=== PATIENT | male | born 1965 | race Caucasian/White ===

== ENCOUNTER 2023-08-19 21:33 | Outpatient (REF) | payer MEDICAID, SELFPAY ==
[2023-08-19 21:58] LABS: HCT 45.1 % (40.0-50.0); HGB 15.1 g/dL (13.5-17.5); MCH 27.7 pg (27.0-33.0); MCHC 33.5 % (32.0-36.0); MCV 83 fL (80-95); MPV 11.6 fL (8.0-11.0); Platelet Count 204 10^3/uL (130-400); RBC 5.45 10^6/uL (4.36-5.78); RDW 12.7 % (11.8-14.1); WBC 6.95 10^3/uL (4.4-10.8)
[2023-08-19 22:02] LABS: Prothrombin Time 9.9 sec (9.1-11.1)
[2023-08-19 22:21] LABS: ALT 20 U/L (16-63); AST 17 U/L (15-37); Albumin 4.3 g/dL (3.4-5.0); Alkaline Phosphatase 81 U/L (46-116); Bilirubin, Direct 0.2 mg/dL (0.0-0.2); Bilirubin, Total 1.1 mg/dL (0.2-1.0); TSH (W/Ref FT4) 3.13 uIU/mL (0.36-3.74); Total Protein 7.2 g/dL (6.4-8.2)
[2023-08-22 01:48] LABS: 25-Hydroxy D Total 39 ng/mL; 25-Hydroxy D2 <4.0 ng/mL; 25-Hydroxy D3 39 ng/mL
== END 2023-08-19 21:34 | disposition home or self-care (01) ==
LOC: NCHCN 21:33
PROVIDERS: Visit Provider Nurse Practitioner Family
DX: F33.3 Major depressive disorder, recurrent, severe with psychotic symptoms (principal)
CPT/HCPCS: 80076; 82306; 85027; 84443; 85610

== ENCOUNTER 2023-09-25 15:39 | Outpatient (REF) | payer MEDICAID, SELFPAY ==
[2023-09-25 16:54] LABS: Anion Gap 7.5 mmol/L (3-11); BUN 19 mg/dL (7-18); CO2 28.5 mmol/L (21.0-32.0); Calcium 8.8 mg/dL (8.5-10.1); Calculated LDL 124 mg/dL (<100); Chloride 107 mmol/L (98-107); Cholesterol 191 mg/dL (<200); Glucose 108 mg/dL (74-106); HDL Cholesterol 48 mg/dL (40-60); Potassium 4.1 mmol/L (3.5-5.1); Sodium 143 mmol/L (136-145); Triglyceride 96 mg/dL (<150)
== END 2023-09-25 15:40 | disposition home or self-care (01) ==
LOC: NCHCN 15:39
PROVIDERS: Visit Provider Nurse Practitioner Family
DX: I10 Essential (primary) hypertension (principal)
CPT/HCPCS: 80048; 80061

== ENCOUNTER 2024-02-29 05:53 | Outpatient (CLI) | payer MEDICAID, SELFPAY ==
[2024-02-29 11:15] LABS: HCT 41.6 % (40.0-50.0); HGB 14.2 g/dL (13.5-17.5); MCH 28.6 pg (27.0-33.0); MCHC 34.1 % (32.0-36.0); MCV 84 fL (80-95); Platelet Count 158 10^3/uL (130-400); RBC 4.96 10^6/uL (4.36-5.78); RDW 12.8 % (11.8-14.1); WBC 6.38 10^3/uL (4.4-10.8)
[2024-02-29 11:30] LABS: VALPROIC ACID 64.8 ug/mL
[2024-02-29 11:59] LABS: ALT 30 U/L (16-63); AST 21 U/L (15-37); Alkaline Phosphatase 69 U/L (46-116); Bilirubin, Direct 0.2 mg/dL (0.0-0.2); Total Protein 6.6 g/dL (6.4-8.2)
== END 2024-02-29 05:54 | disposition home or self-care (01) ==
LOC: LBO 05:53
PROVIDERS: PCP Nurse Practitioner Family; Referring Provider Nurse Practitioner Family; Visit Provider Nurse Practitioner Family
DX: F20.9 Schizophrenia, unspecified (principal); Z79.899 Other long term (current) drug therapy
CPT/HCPCS: 36415; 80076; 85027; 80164

== ENCOUNTER 2024-06-06 02:11 | Outpatient (CLI) | payer MEDICAID, SELFPAY ==
--- NOTE | 2024-06-06 08:29 | DI.RAD_ITS ---
Exam(s) XR SHOULDER LT COMPLETE 2+V EXAM: XR SHOULDER LT COMPLETE 2+V CLINICAL HISTORY: left shoulder pain, limited AROM, chronic, M25.512, G89.29. TECHNIQUE: 2D digital imaging was performed. COMPARISON: No exams were available for comparison FINDINGS: Five views No evidence of fracture or dislocation nor significant narrowing of the subacromial space. There are no abnormal soft tissue calcifications. No obvious degenerative changes in the glenohumeral and AC joints. Bone density normal. No osseous lesions. IMPRESSION: No significant osseous findings in the left shoulder. DATA REPOSITORY: RADIATION DOSE DELIVERED:
== END 2024-06-06 02:31 ==
PROVIDERS: PCP Nurse Practitioner Family; Visit Provider Nurse Practitioner Family
DX: M25.512 Pain in left shoulder (principal)
CPT/HCPCS: 73030

== ENCOUNTER 2024-09-12 01:39 | Outpatient (CLI) | payer MEDICAID, SELFPAY ==
--- NOTE | 2024-09-12 06:30 | DI.MRI_ITS ---
Exam(s) MR UPPER JOINT LT WO EXAM: MR UPPER JOINT LT WO CLINICAL HISTORY: L SHOULDER PAIN,lt rotator cuff tear,m75.102.m25.512, TECHNIQUE: Multiplanar multisequence MRI of the shoulder was performed. COMPARISON: CR XR SHOULDER LT COMPLETE 2+V from 06/06/2024 CR XR EYE FOREIGN BODY from 09/12/2024 FINDINGS: MARROW:There is no evidence of fracture, Hill-Sachs deformity, nor ominous osseous lesions. There is susceptibility artifact which is most probably related to prior surgery. GLENOHUMERAL JOINT: There are mild degenerative changes in the glenohumeral joint. There is a tiny o steophyte on the inferior articular surface of the humeral head. There is some mild articular cartil age loss. No degenerative subarticular cysts in the osseous glenoid.. ROTATOR CUFF MECHANISM: AC JOINT/ACROMIUM: There are minimal degenerative changes in the AC joint. No evidence of surgical w idening of this articulation.. There is no evidence of os acromiale. There is a 1.5 x 1.4 by 0.3 cm ridge on the undersurface of th e a chromium which is isointense to muscle and peripherally hypointense. There is some impingement a t this level. Supraspinatus: There is significant signal abnormality in the supraspinatus tendon consistent with t endinitis signal. There is also a tiny focus of fluid signal in the tendon which traverses the tendon . There is no fluid in the overlying subacromial bursa. This probably represents a small focal full-t hickness tear, located just above the greater tuberosity. There is no retraction of the musculotendin ous junction and no muscle atrophy in the supraspinatus. Infraspinatus: Intact. No evidence of tear nor muscle atrophy. Teres Minor: Intact. No evidence of tear nor muscle atrophy. Subscapularis/anterior cuff: There is some tendinitis signal evident in the anterior cuff/subscapular is but without obvious full-thickness tear, retraction, nor muscle atrophy. BICEPS TENDON: Exhibits normal position within the intertubercular groove. No evidence of tear. No significant tenosynovitis. LABRUM: There is no abnormal signal in the superior labrum posterior to the biceps tendon. The poste rior labrum appears intact. No obvious labral tears nor evidence of paralabral cyst. IMPRESSION: 1. There is susceptibility artifact indicating that there is most probably been prior surgery. 2. There is a small focus of signal abnormality traversing the supraspinatus tendon just above the gr eater tuberosity consistent with a small full-thickness tear. There is no fluid in the subacromial b ursa space. There is no tendon retraction. No muscle atrophy. There appears to be some impingement at the level of the acromium, as described above. 3. There is also tendinitis signal evident in the anterior cuff-subscapularis just anterior to the le sser tuberosity insertion site.. No full-thickness tear evident at this level.. 4. No evidence of obvious labral tears nor biceps tendon tear 5. Mild degenerative changes in the glenohumeral joint. No joint effusion evident. DATA REPOSITORY:
--- NOTE | 2024-09-12 08:55 | DI.RAD_ITS ---
Exam(s) XR EYE FOREIGN BODY EXAM: XR EYE FOREIGN BODY CLINICAL HISTORY: PRE MRI clearance, lt shoulder pain,h/o metal to eye. TECHNIQUE: 2D digital imaging was performed. COMPARISON: No exams were available for comparison FINDINGS: Two views no fractures. No fluid in the paranasal sinuses. No radiopaque foreign bodies evident in the region of the orbits. IMPRESSION: No radiopaque foreign bodies evident in the orbits-face region. DATA REPOSITORY: RADIATION DOSE DELIVERED:
== END 2024-09-12 01:59 ==
LOC: DI 01:40
PROVIDERS: PCP Nurse Practitioner Family; Visit Provider Student in an Organized Health Care Education/Training Program
DX: M75.122 Complete rotator cuff tear or rupture of left shoulder, not specified as traumatic (principal)
CPT/HCPCS: 70030; 73221

== ENCOUNTER 2024-12-29 09:16 | Day surgery (SDC) | payer MEDICAID, SELFPAY ==
[2024-12-29] VITALS (23 sets, daily range): BP systolic 129–164; BP diastolic 76–119; PULSE 53–78; RESP 13–23; TEMP 35.6–36.7; O2SAT 93–99; BMI 34.6
--- NOTE | 2024-12-29 07:21 | W.PM.DSUDISC ---
Date of service: 12/29/24 Discharge Plan Disposition Patient Disposition: Home Condition: Stable Discharge Details Attending Provider: Lucius Brito Primary Care Provider: Elisa Parikh Home Meds and New Rx's Prescriptions: New naproxen 250 mg tablet 250 - 500 mg PO BID PRN (Reason: Moderate pain) Qty: 40 0RF tramadol 50 mg tablet 50 mg PO TID PRNQty: 18 0RF Continued epinephrine [EpiPen 2-Tucker] 0.3 mg/0.3 mL auto-injector 0.3 mg IM ONCE PRN (Reason: anaphylaxis) Qty: 2 1RF Rx Instructions: as a single dose; may repeat once celecoxib [Celebrex] 100 mg capsule 100 mg PO BID PRN (Reason: pain) Qty: 60 1RF Rx Instructions: take with food (DME) ProChamber Spacer See Rx Instructions .Route Rx Instructions: As directed divalproex [Depakote ER] 250 mg tablet extended release 24 hr 1,500 mg PO QHS 30 Days Qty: 180 3RF budesonide-formoterol [Symbicort] 160-4.5 mcg/actuation HFA aerosol inhaler 1 puff inhalation BID Qty: 10.2 3RF albuterol sulfate 90 mcg/actuation HFA aerosol inhaler 2 puff inhalation Q6H PRN (Reason: shortness of breath or wheezing) Qty: 8.5 2RF Discharge Instructions Additional Instructions: Surgery: Left shoulder arthroscopy with biceps tenodesis, extensive debridement, distal clavicle excision, and subacromial decompression 12/29/24 Activity: You should gradually increase range of motion motion and use of your shoulder. You may use your shoulder for all regular activities while protecting biceps repair. Avoid any weighted elbow flexion or resisted supination for 6-8 weeks. No heavy lifting, reaching overhead, or lifting away from body for approximately 2-3 months. You may use the sling whenever you are out of the house for a few weeks. At home it is best to remove the sling and rest the arm on a pillow at your side or support the operative side with your other hand. A physical therapy prescription will be sent electronically to start in about 3 weeks. Prescriptions: Naproxen 250 mg take 1-2 every 12 hours with a meal as needed for moderate pain Oxycodone 5 mg take 1-2 every 4-6 hours as needed for severe pain You may use [id number] Tylenol (acetaminophen) as needed for mild pain. These pain medications may be taken all at once or in different combinations as needed. Also, recommend Colace (docusate) as a stool softener as surgery and pain medicine cause constipation. You may try [id number] diphenhydramine (Benadryl) 25-50 mg nightly as a sleep aid Dressings: Remove shoulder bandage after 3 days. Leave the sticky Steri-Strips in place until they fall off or remove them after you shower. Cover the incisions with Band-Aids or leave them open to air. You may shower after 5 days. Follow-up: 10-[address] Brito You may take off the leg compression stockings this evening at home. You may also leave them on a few days longer if you have a history of leg swelling or edema. Let us know right away if you develop any redness, drainage, fevers, chest pain, or trouble breathing. Do not drink alcohol or drive for at least 24 hours after anesthesia. Please call the office during business hours with any questions or concerns. Stand Alone Forms: Anesthesia Discharge Inst., Anes.Nerve Block Instructions, Elle Bojorquez (DSU) Referrals: Lucius Brito MD [ [facility] ST[facility]FF PHYSICIAN] - 01/10/25 9:00 am Discharge Orders Discharge Orders: Discharge Order (Routine); Ordered 12/29/24 Ordered By: Ethan Johnson DS: Diagnosis Discharge Diagnosis (1) Left rotator cuff tear: Status: Acute (2) Arthritis of left acromioclavicular joint: Status: Acute (3) SLAP lesion of left shoulder: Status: Acute (4) Bursitis of left shoulder: Status: Acute (5) Glenoid chondromalacia of left shoulder: Status: Acute
[2024-12-29] MEDS: Lactated Ringers 1,000 ML 30 ML IV (10:09)
--- NOTE | 2024-12-29 10:09 | W.ANESPRE ---
General Info Date of Service Date Performed: 12/29/24 Height: 6 ft Weight: 115.7 kg Body Mass Index (BMI): 34.6 Surgical Procedure: Operation Date: 12/29/24 10:40 Proposed Procedure Side Surgeon p Shoulder Rotator Cuff Arthroscopic w/Extensive Debridement, Biceps Tenodesis, Distal Clavicle Excision Left Lucius Brito MD Meds Allergies and Home Medications Allergies Allergy/AdvReac Type Severity Reaction Status Date / Time bee venom protein (honey bee) Allergy Severe Anaphylaxis Verified 12/29/24 09:33 Penicillins Allergy Severe Anaphylaxis Verified 12/29/24 09:33 quetiapine (From Seroquel) AdvReac Intermediate Other (See Verified 12/29/24 09:33 Comment) fluoxetine (From Prozac) AdvReac Becomes Verified 12/29/24 09:33 violent sertraline (From Zoloft) AdvReac Irritable Verified 12/29/24 09:33 Home Medication ?Medication ?Instructions ?Recorded inhalational spacing device 02/19/24 (ProChamber) epinephrine 0.3 mg/0.3 mL 0.3 mg (0.3 mL) IM ONCE PRN 05/26/24 injection, auto-injector (EpiPen anaphylaxis #2 ea 2-Tucker) Depakote ER 250 mg tablet,extended 1,500 mg (6 x 250 mg) PO QHS 30 07/13/24 release (divalproex) days #180 tabs albuterol sulfate 90 mcg/actuation 2 puff inhalation Q6H PRN 07/13/24 aerosol inhaler shortness of breath or wheezing #8.5 grams budesonide-formoterol HFA 160 1 puff inhalation BID #10.2 grams 07/13/24 mcg-4.5 mcg/actuation aerosol inhaler (Symbicort) celecoxib 100 mg capsule (Celebrex) 100 mg PO BID PRN pain #60 caps 09/23/24 naproxen 250 mg tablet 250 - 500 mg (1 - 2 x 250 mg) PO 12/29/24 BID PRN Moderate pain #40 tabs oxycodone 5 mg tablet 5 - 10 mg (1 - 2 x 5 mg) PO Q4H 12/29/24 PRN Moderate to severe pain #18 tabs Current Visit Medications: Current Medications Generic Name Dose Route Start Last Admin Trade Name Freq PRN Reason Stop Dose Admin Ringer's Solution 1,000 mls @ 30 mls/hr 12/29/24 06:00 12/29/24 10:09 IV 12/29/24 23:59 30 mls/hr INFUSION ELDA Administration Cefazolin Sodium/Dextrose 2 gm in 50 mls @ 100 mls/hr 12/29/24 06:00 Ancef Duplex IVPB 12/29/24 23:59 PREOP ELDA Tranexamic Acid/Sodium Chloride 1,000 mg in 100 mls @ 600 mls/hr 12/29/24 06:00 IVPB 12/29/24 23:59 PREOP ELDA IV Miscellaneous Supplies 1 each 12/29/24 06:00 Iv Access IV 12/29/24 23:59 DIRECTED ELDA Oxycodone HCl 0 mg 12/29/24 07:20 Oxycodone 5 Mg Tab PO 01/28/25 07:19 Q3H PRN PRN Pain Sodium Chloride 0 ml 12/29/24 06:00 Normal Saline Flush 10 Ml Syr IV 12/29/24 23:59 PRN PRN Sodium Chloride 0 ml 12/29/24 06:00 Normal Saline 10 Ml Vial IJ 12/29/24 23:59 DIRECTED PRN Sterile Water 0 ml 12/29/24 06:00 Water,Injection,Sterile 10 Ml Vial IJ 12/29/24 23:59 DIRECTED PRN PFSH Active Problems Active Problems: Problem Status Onset Code Left rotator cuff tear Acute M75.102 [facility] health care Acute Z00.00 Shoulder pain, left Acute M25.512 Moderate persistent asthma Acute J45.40 Essential hypertension Acute I10 Severe recurrent major depression with psychotic features Acute F33.3 Schizophrenia Chronic F20.9 Medical History Medical History Hypothyroidism Tobacco Smoking/Tobacco Use Status: Former Tobacco Use Passive smoking exposure: No Second hand exposure: Yes Alcohol Alcohol Intake: former Substance Use Substance use: Daily Substance use type: marijuana Vital Signs and Lab Results Vital Signs Most Recent Vital Signs in EMR: Most Recent Vital Signs Temp Pulse Resp BP Pulse Ox 36.3 C L 74 18 151/93 H 99 12/29/24 09:22 12/29/24 09:22 12/29/24 09:22 12/29/24 09:45 12/29/24 09:22 Lab Results Blood Type / Crossmatch: No Data to Display Complete Blood Count: No Data to Display Complete Metabolic Panel: No Data to Display Liver Function Panel: No Data to Display Coagulation Panel: No Data to Display Cardiac Panel: No Data to Display Arterial Blood Gas: No Data to Display Venous Blood Gas: No Data to Display Pancreas Panel: No Data to Display Thyroid Panel: No Data to Display Infectious Disease: No Data to Display Blood Cultures: No Data to Display Toxicology Panel: No Data to Display Anesthesia Assessment and Plan Anesthesia History Personal History: No History of Anesthesia Complications Family History: Family History Unknown Exercise Tolerance Exercise Tolerance: Metabolic Equivalents>4 Pertinent Negatives Pertinent Negatives: No Symptoms of GERD Cardiac & Pulmonary Exam Cardiac Exam: Normal S1/S2 Heart Sounds Pulmonary Exam: Clear Bilateral Breath Sounds Implantable Cardiac Device Does patient have a Pacemaker or an ICD?: No Airway Exam Known Difficult Airway: No Mallampati Class: 2 Mouth Opening: Normal (> 3cm) Thyromental Distance: Greater than 3 cm Neck Range of Motion: Full ROM Neck Circumference: Normal Teeth Condition: Normal Dentition ASA Classification ASA Score: ASA 2 Emergency Case?: No NPO Status NPO Status: NPO Clears >2 hours, Solids >8 hours Anesthesia Plan Resuscitation Status: Full Code Anesthesia Technique: General Anesthesia Airway Planned: Endotracheal Tube Pain Management: Surgeon and patient request nerve block Monitors Used: Standard Monitors
--- NOTE | 2024-12-29 11:17 | ROE_ITS ---
Operative Note Operative Note PRE-OP DIAGNOSIS: Left: 1. Rotator cuff tear 2. SLAP tear 3. Bursitis 4. AC joint arthritis POST-OP DIAGNOSIS: same PROCEDURE: Left: 1. Arthroscopic biceps tenodesis, CPT# 92876. This involved arthroscopically suturing and reattaching the long head of the biceps tendon to the proximal humerus at the superior margin of the bicipital groove with a screw at the correct tension. 2. Extensive debridement, CPT# 69432. This involved using arthroscopic hand instruments, power instruments, and radiofrequency instruments to release the long head of the biceps tendon and debride areas of labral tearing, synovitis, SLAP tearing, and MGHL partially working within the glenohumeral joint anteriorly, superiorly and posteriorly and debride mild bursal rotator cuff fraying in the subacromial space. 3. Subacromial decompression with partial acromioplasty, CPT# 97832. This involved using arthroscopic power instruments and a radiofrequency wand to complete a bursectomy and smooth the undersurface of the acromion. 4. Arthroscopic distal clavicle excision, CPT# 66305. This involved arthroscopically exposing the underside of the acromioclavicular joint, smoothing out bone spurs, and removing approximately 5 mm of the distal clavicle and acromion so there was no bone left engaging. The tiler's assistant was medically required in order to help assist in techniques above, which require positioning the arm, holding the arthroscope, and arvind pulating multiple instruments and sutures at the same time. This cannot be done without the help of an experienced tiler's assistant. SURGEON: Lucius Brito RETAIL MARKETING COORDINATOR: Ethan Johnson ANESTHESIA TYPE: General LMA/ETT and Primary Nerve Block Refer to Anesthesia Record ESTIMATED BLOOD LOSS: 5 PATHOLOGY: none sent COMPLICATIONS: None Patient was transported to: PACU Patient's condition: stable Implants: Arthrex: 4.75mm SwiveLocks x 1 Indications: The patient was diagnosed with the above conditions and appropriately indicated for surgical intervention. Please see complete medical record for details. Findings: Exam under anesthesia: Full range of motion, no instability Glenohumeral joint: Moderate anterior rotator synovitis. Largely intact articular rotator cuff. Intact subscapularis. Large obvious redundant superior labrum tear SLAP tear otherwise intact biceps with hemorrhagic biceps injection to grasper the groove. Mild anterior posterior labral fraying. Thickened M GH L. Subacromial space: Moderate bursitis. Impinging acromion especially anteriorly and impinging distal clavicle at acromion joint. Mild central to lateral supraspinatus fraying with some hemorrhagic injection but no structural rotator cuff tearing thinning or notable softening. Procedure Description: In the operating room, general anesthesia was induced. Bilateral shoulders were examined. The patient was positioned in the beachchair position. All bony prominences were well-padded. Preoperative antibiotics were administered. The shoulder was prepped and draped in the usual sterile fashion. The correct patient, procedure, and side of the procedure were all verified prior to incision. Starting through the posterior portal a standard complete diagnostic arthroscopy was performed of the glenohumeral joint including inspection of the long head of the biceps, anterior and superior labrum, subscapularis tendon, supraspinatus and infraspinatus tendons, and axillary recess. The glenoid and humeral head cartilage as well as the posterior labrum were inspected from an anterior viewing portal. Significant findings and interventions noted above. An all-arthroscopic suprapectoral biceps tenodesis was performed through an anterior portal using a Loop N Tack method with a SutureTape FiberLink cinched around and through the tendon. The biceps was tenotomized from the labrum and fixated with a suture anchor at the superior margin of the bicipital groove. Starting through the posterior portal, the arthroscope was directed into the subacromial space. A lateral 50 yard line lateral portal was created. A combination of power instruments and a radiofrequency ablator were used to debride bursitis anteriorly, posteriorly, and laterally as well as expose and smooth bone spurring on the undersurface of the acromion. The coracoacromial ligament was partially released. The bursectomy was completed viewing laterally and working from posteriorly and the rotator cuff was thoroughly inspected with findings noted above. The anterior portal was redirected towards the undersurface of the AC joint. A shaver and electrocautery device were used to clear soft tissue from the unders urface of the AC joint. The distalmost 5 mm of the distal clavicle and medial acromion were then removed and smoothed. Care was taken to ensure that proper amount of bone was removed and there was no engaging bone left behind especially superiorly. The rotator cuff was thoroughly probed and inspected through range of motion but the focal tear on MRI did not reveal itself to require any repair. The shoulder was drained of arthroscopic fluid. All portal sites were copiously irrigated. These incisions were closed using 3-0 Monocryl in a buried fashion and then covered with Mastisol, Steri-Strips, Xeroform, dry gauze, and ABDs. The dressings were covered and secured with Medipore tape. The operative extremity was placed into a sling for immobilization. The patient awoke from anesthesia without complication and was transferred to the recovery room in a stable condition. Date of Procedure: 12/29/24
[2024-12-29] MEDS: ceFAZolin 2 GM/50 ML BAG IVPB (11:30)
[2024-12-29] MEDS: TRANEXAMIC ACID/SOD. CHL. 1,000 MG/100 ML BAG 600 MG IVPB (11:35)
[2024-12-29] MEDS: EPINEPHrine 10 MG/10 ML ML (12:00)
[2024-12-29] MEDS: Bupivacaine 0.25% Pres-Free W/EPI 30 ML VIAL (12:00)
--- NOTE | 2024-12-29 12:41 | W.ANESNERVE ---
Nerve Block Single Injection Procedure Date and Time Date Performed: 12/29/24 Procedure Start: 11:05 Location Where Procedure Performed Procedure Location: Day Surgery Unit Reason Performed: Postoperative Analgesia Requesting Provider: Lucius Brito Timeout Performed Timeout Performed: Yes Monitoring Used ECG, Blood Pressure, SpO2 and See EMR for corresponding vital signs Sterility Sterility: Hand Hygiene, Surgical Cap, Surgical Mask, Sterile Gloves and Chlorhexidine Sedation Given During Procedure Sedation Given (Indicate Dose Given): Versed IV Dose:: 2mg Patient Mental Status Patient Mental Status: Sedate with meaningful communication Nerve Block 1st Nerve Block: Laterality: Left Block Type: Interscalene Ultrasound Image Saved?: Yes Needle / Catheter Used: 100mm SonoPlex II Local Anesthetic Bolus (Indicate Dose Given): Lidocaine used for local infiltration of skin, Injected in 3-5ml increments after negative blood aspiration, Bupivacaine 0.5% Dose:: 10ml and Exparel Dose:: 10ml Additives (Indicate Dose Given): None Ultrasound: Sterile probe cover and gel used Nerve Stimulator: Supplement to Ultrasound use and No twitch or parasthesia noted < 0.5 mA Paresthesia: None Procedure Tolerated: No Complications and Patient tolerated well Procedure Outcome: Successful Procedure Comment: Interscalene view mildly obscured, went slightly caudal for this view. Performed By: Loki Estrada
--- NOTE | 2024-12-29 13:49 | W.ANESPOSTOP ---
Postoperative Evaluation Date, Time and Location Date Performed: 12/29/24 Time Performed: 13:49 Patient Location: PACU Vital Signs Most Recent Imported Vital Signs: Most Recent Vital Signs Temp Pulse Resp BP Pulse Ox 36.7 C 63 13 142/83 H 96 12/29/24 13:45 12/29/24 13:46 12/29/24 13:46 12/29/24 13:45 12/29/24 13:46 Pain Score Most Recent Pain Score: Most Recent Pain Score Pain Level 0 12/29/24 13:46 Assessment Mental Status: Awake (Alert & Oriented to Patient Baseline) Airway and Respiratory Function: Patent airway with normal (patient baseline) respiratory exam Cardiovascular Function: Hemodynamically Stable Hydration Status: Adequately Hydrated Nausea & Vomiting: No Nausea or Vomiting Pain: Pt. Denies Any Pain Peripheral Nerve Block: Regional nerve block not resolved at time of post operative discharge
== END 2024-12-29 16:44 | disposition home or self-care (01) ==
LOC: SUR 09:17
PROVIDERS: PCP Nurse Practitioner Family; Visit Provider Student in an Organized Health Care Education/Training Program
PROC: (CPT 29827; principal; 2024-12-29 10:30)
DX: M75.102 Unspecified rotator cuff tear or rupture of left shoulder, not specified as traumatic (principal); M75.22 Bicipital tendinitis, left shoulder; M75.52 Bursitis of left shoulder; M75.42 Impingement syndrome of left shoulder; M19.012 Primary osteoarthritis, left shoulder; S43.432A Superior glenoid labrum lesion of left shoulder, initial encounter; M94.212 Chondromalacia, left shoulder; G89.18 Other acute postprocedural pain
CPT/HCPCS: 29827; 29828; 29823; 29824; 64415; J0131; J0665; J0666; J0690; J1100; J2250; J2405; J2704

== ENCOUNTER 2025-02-07 08:46 | Day surgery (SDC) | payer MEDICAID, SELFPAY ==
[2025-02-07] VITALS (56 sets, daily range): BP systolic 148–197; BP diastolic 79–111; PULSE 59–86; RESP 7–22; TEMP 36.2–36.7; O2SAT 93–99; BMI 33.6
--- NOTE | 2025-02-07 09:00 | DI.CT_ITS ---
Exam(s) CT THORAX ABD/PEL CTA EXAM: CT THORAX ABD/PEL CTA CLINICAL HISTORY: epigasttric pain with radiation, dark vomitus. TECHNIQUE: Imaging Protocol: Axial computed tomography images with coronal and sagittal reformatted images were created and reviewed CONTRAST MATERIAL: Intravenous: Omnipaque 350 Contrast volume:125 now Oral: None COMPARISON: No exams were available for comparison FINDINGS: CHEST: AORTA: The diameter of the ascending thoracic aorta aortic arch are normal. No significant atheroscl erotic disease and there is no evidence of aortic dissection. The abdominal aorta also appears unrem arkable with no aneurysm nor dissection. The aortoiliac segments are also unremarkable as are the co mmon femoral arteries. Incidentally noted is independent origin of the splenic artery and common hep atic artery off the anterior aspect of the upper abdominal aorta instead of a common celiac trunk. T he superior mesenteric artery is unremarkable and the inferior mesenteric artery is also patent. Lul al arteries unremarkable. LUNGS: No infiltrates nor pleural effusions. No significant pulmonary nodules evident. No findings in trachea and mainstem bronchi.. MEDIASTINUM: There is no hilar nor mediastinal adenopathy. CARDIAC: Heart size is normal. There is no pericardial effusion. ABDOMEN: AORTA: Unremarkable GI: There is no ascites. There is no intraluminal contrast extravasation demonstrating an acute GI b leed, as per request. There is an abnormal retrocecal appendix which is abnormally dilated to 1.6 cm , this starting 3 cm distal from its junction with the cecum. The distal 3 cm of the appendix is enl arged and exhibits internal fluid density. Also surrounding fat streaking. Consistent with acute ap pendicitis. There are no calcified intraluminal appendicoliths. LIVER: There multiple well-defined hypodensities in the liver which have the appearance of benign cys ts, the largest of these measuring 3 by 2.5 cm. No solid lesions. No dilated intrahepatic ducts. GALLBLADDER/BILIARY: No obvious gallbladder pathology. CBD is not dilated. PANCREAS: No evidence of pancreatic mass nor dilatation of the pancreatic duct. SPLEEN: Spleen is not enlarged. There are no intrasplenic lesions. Splenic and portal veins are castillo nt. ADRENALS: There are no significant adrenal masses. KIDNEYS: There few small benign sub cm cortical cysts in the kidneys. These do not require follow-up . No calculi nor hydronephrosis. No solid renal masses. ABDOMINAL AORTA: Unremarkable. See above LYMPH NODES: There is no retroperitoneal nor para-aortic adenopathy. No obvious mesenteric masses. ABDOMINAL WALL: There is a fat only containing umbilical hernia. PELVIS: LYMPH NODES: There is no intrapelvic nor inguinal adenopathy. GI: Appendicitis as described above.No evidence of sigmoid diverticulitis. URINARY BLADDER: No calculi nor masses evident REPRODUCTIVE: Prostate size upper normal. OSSEOUS: No significant osseous lesions. No fractures. IMPRESSION: 1. Acute retrocecal appendicitis. Surgical consultation recommended 2. No evidence of intraluminal gut extravasation of contrast to suggest acute GI bleed. 3. No evidence of aortic dissection nor other intrathoracic findings. 4. Hepatic cysts. Report called by myself to ER provider 02/07/2025 at 11:12 a.m. RADIATION DOSE DELIVERED: 1,082.03mGy.cm Total DLP DATA REPOSITORY: All CT scans at this facility are submitted to the National Radiology Data Registry (NRDR) Dose Index Registry (DIR) with the [employer] (ACR). RADIATION OPTIMIZATION: All CT scans at this facility use at least one of these dose optimization te chniques: automated exposure control; mA and/or kV adjustment per patient size (includes targeted exa ms where dose is matched to clinical indication); or iterative reconstruction.
--- NOTE | 2025-02-07 09:00 | RT.EKG_ITS ---
APPROVED REPORT Exam: Resting ECG Reason for Exam: epigastric pain Patient Location: E HR:61 bpm ECG Measurements Heart Rate 61 AXIS ID 154 P 30 QRSd 112 QRS 31 QT 419 T 17 QTc 422 Conclusion Sinus rhythm...normal P axis, V-rate 60- 99 No Occlusion NV
[2025-02-07 09:48] LABS: Abs Immature Grans 0.07 10^3/uL (0.0-0.06); Absolute Basophil Count 0.03 10^3/uL (0.0-0.2); Absolute Eosinophil Count 0.02 10^3/uL (0.0-0.7); Absolute Lymphocyte Count 1.62 10^3/uL (1.2-3.4); Absolute Neutrophil Count 11.53 10^3/uL (1.2-6.7); Basophils % 0.2 %; Eosinophils % 0.1 %; HCT 48.5 % (40.0-50.0); HGB 16.4 g/dL (13.5-17.5); Immature Grans % 0.5 %; Lymphocytes % 10.7 %; MCH 27.6 pg (27.0-33.0); MCHC 33.8 % (32.0-36.0); MCV 82 fL (80-95); Monocytes % 12.5 %; Platelet Count 207 10^3/uL (130-400); RBC 5.94 10^6/uL (4.36-5.78); RDW 12.7 % (11.8-14.1); RDW-SD 37.3 fL; WBC 15.17 10^3/uL (4.4-10.8)
[2025-02-07] MEDS: Normal Saline 1,000 ML 1000 ML IV (09:51)
[2025-02-07] MEDS: Pantoprazole 40 MG VIAL IVP (09:52)
[2025-02-07] MEDS: MORPHine 10 MG/ML VIAL 6 MG IVP (09:52)
[2025-02-07] MEDS: Ondansetron 4 MG/2 ML VIAL IVP (09:52)
[2025-02-07 10:06] LABS: ALT 20 U/L (16-63); AST 19 U/L (15-37); Albumin 4.5 g/dL (3.4-5.0); Alkaline Phosphatase 100 U/L (46-116); Anion Gap 7.6 mmol/L (3-11); BUN 13 mg/dL (7-18); Bilirubin, Total 1.9 mg/dL (0.2-1.0); CO2 30.4 mmol/L (21.0-32.0); CREATININE 1.1 mg/dL (0.70-1.30); Calcium 9.9 mg/dL (8.5-10.1); Chloride 102 mmol/L (98-107); Estimated GFR 76.37 (mL/min/1.73m2); Glucose 109 mg/dL (74-106); Lipase 42 U/L (<78); Potassium 4.1 mmol/L (3.5-5.1); Sodium 140 mmol/L (136-145); Troponin I 11 ng/L (<or=76)
[2025-02-07] MEDS: Omnipaque 350 MG/ML 50 ML BTL IJ (10:35)
[2025-02-07] MEDS: Omnipaque 350 MG/ML 100 ML BTL IJ (10:35)
[2025-02-07] MEDS: Normal Saline - Diluent 50 ML VIAL IJ ×2 (10:36→10:37)
[2025-02-07 10:54] LABS: Diff Comment Agrees w/ Instrument; RBC Morphology Normal
--- NOTE | 2025-02-07 11:25 | W.PM.HP.N ---
Date of service: 02/07/25 Time of Service: 11:25 Assessment and Plan Assessment and plan (1) Acute appendicitis: Status: Acute Assessment and plan: History and exam certainly seem consistent with acute appendicitis. The CAT scan has clear radiographic evidence of that. I explained the role of appendectomy in the treatment of this, what to expect in terms of the procedure itself and the recovery. I explained the risks and the benefits. I think given his a very good understanding of all of this. He is able to provide informed consent today, and we can proceed with appendectomy as soon as the OR can accommodate us. History of Present Illness History of Present Illness Chief Complaint: abdominal pain Narrative: Zane is 59 years old. Sometime yesterday afternoon, after doing some yard work he noticed the onset of abdominal pain. Seems like it was mostly in the mid abdomen, but eventually radiated to the right side and settled there. He did develop some nausea associated with this, and vomited not long after eating dinner. He was able to get some sleep through the night, but continued to have worsening pain through this morning, so he came to the emergency department for evaluation. In the ER, he had a white blood cell count around 15,000. He underwent a CT scan that demonstrated acute appendicitis. He has never had any abdominal surgery before. He is allergic to penicillin, Seroquel, Prozac and sertraline. Review of Systems Constitutional Constitutional: Reports fatigue, Denies fever(s) and Reports poor appetite Eyes Eyes: Reports system reviewed and no additional complaints, except as documented ENT Ears, Nose, Mouth, and Throat: Reports system reviewed and no additional complaints, except as documented Cardiovascular Cardiovascular: Denies chest pain and Denies dyspnea Respiratory Respiratory: Denies chest congestion, Denies cough and Denies dyspnea Gastrointestinal Gastrointestinal: Reports abdominal pain, Reports nausea and Reports vomiting Genitourinary Genitourinary: Reports system reviewed and no additional complaints, except as documented Musculoskeletal Musculoskeletal: Reports system reviewed and no additional complaints, except as documented Endocrine Endocrine: Reports fatigue Hematologic/Lymphatic Hematologic/Lymphatic: Denies easy bleeding and Denies easy bruising PFSH All Active Problems (Updated 02/07/25 @ 12:39 by Didier Nguyen MD) Acute appendicitis (Acute) 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 (Acute) Glenoid chondromalacia of left shoulder (Acute) Bursitis of left shoulder (Acute) SLAP lesion of left shoulder (Acute) Arthritis of left acromioclavicular joint (Acute) Left rotator cuff tear (Acute) Preventative health care (Acute) Shoulder pain, left (Acute) Moderate persistent asthma (Acute) Essential hypertension (Acute) Severe recurrent major depression with psychotic features (Acute) Schizophrenia (Chronic) Medical History (Updated 02/07/25 @ 12:39 by Didier Nguyen MD) Hypothyroidism Family History Brother Alcohol use disorder Social History Smoking/Tobacco Use Status: Former Tobacco Use Quit Date: 09/14/98 Second Hand Exposure: Yes Smoking risk assessment performed?: Yes Alcohol Intake: former Drug use: Daily Substance use type: marijuana Adopted: No Caregiver/Support person: No Household members: significant other Housing: apartment Number of Children: 1 number of grandchildren: 0 Communication Needs: Corrective Lenses Education Level: middle school Do you need help understanding health information?: Always current occupation: disabled/retired Pets and animals: Yes (1) Pets and animals: dog(s) Sexually active: No Do you think of yourself as: straight/heterosexual Current gender identity: male How often do you talk on the phone with friends or family?: never How often do you get together with friends or relatives?: never Do you belong to any clubs or organized social groups?: no Panel score (0-1 are the most socially isolated patients): 0 What type of physical activity do you participate in: additional Details: Yard work Duration: > 90 minutes/day Glenna/Scientology: None Special glenna needs: No Seatbelt use: always Drive intox or ride w/intox starting gate driver: No Do you feel safe at home: Yes Do you feel safe in your relationship?: Yes Meds Allergies and Home Medications Allergies Allergy/AdvReac Type Severity Reaction Status Date / Time bee venom protein (honey bee) Allergy Severe Anaphylaxis Verified 02/07/25 09:01 Penicillins Allergy Severe Anaphylaxis Verified 02/07/25 09:01 quetiapine (From Seroquel) AdvReac Intermediate Other (See Verified 02/07/25 09:01 Comment) fluoxetine (From Prozac) AdvReac Becomes Verified 02/07/25 09:01 violent sertraline (From Zoloft) AdvReac Irritable Verified 02/07/25 09:01 Home Medications ?Medication ?Instructions ?Recorded ?Confirmed ?Type inhalational spacing device 02/19/24 02/07/25 History (ProChamber) epinephrine 0.3 mg/0.3 mL 0.3 mg (0.3 mL) IM ONCE PRN 05/26/24 02/07/25 Rx injection, auto-injector (EpiPen anaphylaxis #2 ea 2-Tucker) Depakote ER 250 mg tablet,extended 1,500 mg (6 x 250 mg) PO QHS 30 07/13/24 02/07/25 Rx release (divalproex) days #180 tabs albuterol sulfate 90 mcg/actuation 2 puff inhalation Q6H PRN 07/13/24 02/07/25 Rx aerosol inhaler shortness of breath or wheezing #8.5 grams budesonide-formoterol HFA 160 1 puff inhalation BID #10.2 grams 07/13/24 02/07/25 Rx mcg-4.5 mcg/actuation aerosol inhaler (Symbicort) celecoxib 100 mg capsule (Celebrex) 100 mg PO BID PRN pain #60 caps 09/23/24 02/07/25 Rx Exam Const General: cooperative and comfortable Nutritional Appearance: average body habitus Orientation: alert, awake and oriented x3 HENMT Head: normal to inspection Eyes General: appearance normal, both eyes and all related structures Neck Neck: normal visual inspection, full ROM and no lymphadenopathy Resp Effort & Inspection: normal respiratory effort and able to speak in complete sentences Auscultation: clear to auscultation bilaterally Cardio Rate: regular rate Rhythm: regular rhythm Heart Sounds: S1 normal and S2 normal GI Inspection: normal to inspection and non-distended Palpation: soft, guarding (Right lower quadrant) and tender (Right lower quadrant) Percussion: normal to percussion Auscultation: normal bowel sounds Results Imaging Abdomen CT scan report/results: report reviewed and image reviewed CT scan - pelvis: report reviewed and image reviewed Labs 02/07/25 09:35 02/07/25 09:35 Labs: Laboratory Results - last 24 hr 02/07/25 09:35 WBC 15.17 H RBC 5.94 H Hgb 16.4 Hct 48.5 MCV 82 MCH 27.6 MCHC 33.8 RDW 12.7 Plt Count 207 MPV 10.0 Immature Gran % 0.5 Neutrophils % 76.0 Lymphocytes % 10.7 Monocytes % 12.5 Eosinophils % 0.1 Basophils % 0.2 Nucleated RBC % 0.0 Absolute Neutrophils 11.53 H Absolute Lymphocytes 1.62 Absolute Monocytes 1.90 H Absolute Eosinophils 0.02 Absolute Basophils 0.03 RBC Morphology Normal Sodium 140 Potassium 4.1 Chloride 102 Carbon Dioxide 30.4 Anion Gap 7.6 BUN 13 Creatinine 1.1 Est GFR (CKD-EPI 2020) 76.37 Glucose 109 H Calcium 9.9 Total Bilirubin 1.9 H AST 19 ALT 20 Alkaline Phosphatase 100 Troponin I 11 Total Protein 8.0 Albumin 4.5 Lipase 42 ABO/Rh B Positive Antibody Screen NEGATIVE Last Vital Signs Temp 97.8 F 02/07/25 08:58 Pulse 61 02/07/25 09:55 Resp 12 02/07/25 09:55 BP 164/91 H 02/07/25 09:55 Pulse Ox 97 02/07/25 09:55 Time Spent Time spent with Patient: <40 minutes Time was spent: preparing to see the patient(eg.review tests), obtaining and/or reviewing separately otained hiistory, indepentently interpreting results, counseling the patient and care coordination
[2025-02-07] MEDS: CIPROFLOXACIN 400 MG/200 ML BAG 200 MG IVPB (11:48)
[2025-02-07 11:53] LABS: Troponin I 11 ng/L (<or=76)
--- NOTE | 2025-02-07 12:47 | ANES.PREOP_ITS ---
General Info Date of Service Date Performed: 02/07/25 Height: 6 ft Weight: 112.491 kg Body Mass Index (BMI): 33.6 Surgical Procedure: Operation Date: 02/07/25 13:55 Proposed Procedure Side Surgeon p Appendectomy Laparoscopic Didier Nguyen MD Meds Allergies and Home Medications Allergies Allergy/AdvReac Type Severity Reaction Status Date / Time bee venom protein (honey bee) Allergy Severe Anaphylaxis Verified 02/07/25 09:01 Penicillins Allergy Severe Anaphylaxis Verified 02/07/25 09:01 quetiapine (From Seroquel) AdvReac Intermediate Other (See Verified 02/07/25 09:01 Comment) fluoxetine (From Prozac) AdvReac Becomes Verified 02/07/25 09:01 violent sertraline (From Zoloft) AdvReac Irritable Verified 02/07/25 09:01 Home Medication ?Medication ?Instructions ?Recorded inhalational spacing device 02/19/24 (ProChamber) epinephrine 0.3 mg/0.3 mL 0.3 mg (0.3 mL) IM ONCE PRN 05/26/24 injection, auto-injector (EpiPen anaphylaxis #2 ea 2-Tucker) Depakote ER 250 mg tablet,extended 1,500 mg (6 x 250 mg) PO QHS 30 07/13/24 release (divalproex) days #180 tabs albuterol sulfate 90 mcg/actuation 2 puff inhalation Q6H PRN 07/13/24 aerosol inhaler shortness of breath or wheezing #8.5 grams budesonide-formoterol HFA 160 1 puff inhalation BID #10.2 grams 07/13/24 mcg-4.5 mcg/actuation aerosol inhaler (Symbicort) celecoxib 100 mg capsule (Celebrex) 100 mg PO BID PRN pain #60 caps 09/23/24 Current Visit Medications: Current Medications Generic Name Dose Route Start Last Admin Trade Name Freq PRN Reason Stop Dose Admin Iohexol 100 ml 02/07/25 10:45 02/07/25 10:35 Omnipaque 350 Mg/Ml 100 Ml Btl IJ 03/09/25 23:59 100 ml DIRECTED ELDA Administration Iohexol 50 ml 02/07/25 11:00 02/07/25 10:35 Omnipaque 350 Mg/Ml 50 Ml Btl IJ 03/09/25 23:59 25 ml DIRECTED ELDA Administration Sodium Chloride 50 ml 02/07/25 10:45 02/07/25 10:37 Normal Saline - Diluent 50 Ml Vial IJ 15 ml .FOR DI USE ELDA Administration PFSH Active Problems Active Problems: Problem Status Onset Code Acute appendicitis Acute K35.80 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 Acute Z77.011 Glenoid chondromalacia of left shoulder Acute M94.212 Bursitis of left shoulder Acute M75.52 SLAP lesion of left shoulder Acute S43.432A Arthritis of left acromioclavicular joint Acute M19.012 Left rotator cuff tear Acute M75.102 Preventative health care Acute Z00.00 Shoulder pain, left Acute M25.512 Moderate persistent asthma Acute J45.40 Essential hypertension Acute I10 Severe recurrent major depression with psychotic features Acute F33.3 Schizophrenia Chronic F20.9 Medical History Medical History Hypothyroidism Tobacco Smoking/Tobacco Use Status: Former Tobacco Use Passive smoking exposure: No Second hand exposure: Yes Alcohol Alcohol Intake: former Substance Use Substance use: Daily Substance use type: marijuana Vital Signs and Lab Results Vital Signs Most Recent Vital Signs in EMR: Most Recent Vital Signs Temp Pulse Resp BP Pulse Ox 36.6 C 61 12 164/91 H 97 02/07/25 08:58 02/07/25 09:55 02/07/25 09:55 02/07/25 09:55 02/07/25 09:55 Lab Results 02/07/25 09:35 02/07/25 09:35 Blood Type / Crossmatch: 2 Antibody Screen NEGATIVE 02/07/25 Complete Blood Count: 2 White Blood Count 15.17 10^3/uL (4.4-10.8) H 02/07/25 09:35 Red Blood Count 5.94 10^6/uL (4.36-5.78) H 02/07/25 09:35 Hemoglobin 16.4 g/dL (13.5-17.5) 02/07/25 09:35 Hematocrit 48.5 % (40.0-50.0) 02/07/25 09:35 Platelet Count 207 10^3/uL (130-400) 02/07/25 09:35 Complete Metabolic Panel: 2 Sodium 140 mmol/L (136-145) 02/07/25 09:35 Potassium 4.1 mmol/L (3.5-5.1) 02/07/25 09:35 Chloride 102 mmol/L (98-107) 02/07/25 09:35 Carbon Dioxide 30.4 mmol/L (21.0-32.0) 02/07/25 09:35 BUN 13 mg/dL (7-18) 02/07/25 09:35 Creatinine 1.1 mg/dL (0.70-1.30) 02/07/25 09:35 Est GFR (CKD-EPI 2020) 76.37 (mL/min/1.73m2) 02/07/25 09:35 Calcium 9.9 mg/dL (8.5-10.1) 02/07/25 09:35 Albumin 4.5 g/dL (3.4-5.0) 02/07/25 09:35 Glucose 109 mg/dL (74-106) H 02/07/25 09:35 Liver Function Panel: 2 Alanine Aminotransferase (ALT/SGPT) 20 U/L (16-63) 02/07/25 09: 35 Aspartate Amino Transf (AST/SGOT) 19 U/L (15-37) 02/07/25 09:35 Coagulation Panel: 2 No Data to Display Cardiac Panel: 2 Troponin I 11 ng/L (<or=76) 02/07/25 Arterial Blood Gas: 2 No Data to Display Venous Blood Gas: 2 No Data to Display Pancreas Panel: 2 Lipase 42 U/L (<78) 02/07/25 09:35 Thyroid Panel: 2 No Data to Display Infectious Disease: 2 No Data to Display Blood Cultures: 2 No Data to Display Toxicology Panel: 2 No Data to Display Anesthesia Assessment and Plan Anesthesia History Personal History: No History of Anesthesia Complications Family History: Family History Unknown Exercise Tolerance Exercise Tolerance: Metabolic Equivalents>4 Pertinent Negatives Pertinent Negatives: No Symptoms of GERD, No Major Cardiovascular Symptoms or Complaints, No Major Pulmonary Symptoms or Complaints and No History of CVA/TIA Cardiac & Pulmonary Exam Cardiac Exam: Normal S1/S2 Heart Sounds Pulmonary Exam: Clear Bilateral Breath Sounds, No cough or Cold and Active Dry Cough Implantable Cardiac Device Does patient have a Pacemaker or an ICD?: No Airway Exam Known Difficult Airway: No Mallampati Class: 2 Mouth Opening: Normal (> 3cm) Thyromental Distance: Greater than 3 cm Neck Range of Motion: Full ROM Neck Circumference: Normal Teeth Condition: Normal Dentition and Generalized Poor Dentition Tooth Numberin 1. Missing ASA Classification ASA Score: ASA 3 Emergency Case?: Yes NPO Status NPO Status: NPO Clears >2 hours, Solids >8 hours Anesthesia Plan Resuscitation Status: Full Code Anesthesia Technique: General Anesthesia Airway Planned: Endotracheal Tube Monitors Used: Standard Monitors and SedLine
[2025-02-07] MEDS: Lactated Ringers 1,000 ML 30 ML IV (13:53)
[2025-02-07] MEDS: metroNIDAZOLE 500 MG/100 ML BAG 100 MG IVPB (14:00)
[2025-02-07] MEDS: Bupivacaine 0.25% Pres-Free W/EPI 30 ML VIAL (14:15)
--- NOTE | 2025-02-07 14:35 | APP_PTH ---
PATIENT: Anthony Mckenzie LOC: [facility] U#:[id number] AGE/SX: 59/M ROOM: RE02/07/[address]: Didier Nguyen MD : 1965 BED: DIS: 02/07/2025 SPEC #: [id number] RECD: 02/07/25 15:52 STATUS: JG REQ #: [id number] PETER: 02/07/25 14:[address]: Didier Nguyen DEPT: Surgical Specimen RECD BY: Kathy Pérez ENTERED: 02/07/25 15:53 SP TYPE: Appendix OTHR DR: Elisa Parikh APRN Tissues: 1 - APPENDIX NOT INCIDENTAL Procedures: GROSS AND MICRO LEVEL 3 Comments: [id number]
--- NOTE | 2025-02-07 14:57 | PDOC.DSDIS_ITS ---
Date of service: 02/07/25 Discharge Plan Disposition Patient Disposition: Home Condition: Improving Discharge Details Reason For Visit: Stomach Pain Attending Provider: Didier Nguyen Primary Care Provider: Elisa Parikh Home Meds and New Rx's Prescriptions: New tramadol 50 mg tablet 50 mg PO Q8H PRNQty: 9 0RF Rx Instructions: Take 1 tablet by mouth up to every 8 hours if needed for more severe pain Continued epinephrine [EpiPen 2-Tucker] 0.3 mg/0.3 mL auto-injector 0.3 mg IM ONCE PRN (Reason: anaphylaxis) Qty: 2 1RF Rx Instructions: as a single dose; may repeat once celecoxib [Celebrex] 100 mg capsule 100 mg PO BID PRN (Reason: pain) Qty: 60 1RF Rx Instructions: take with food (DME) ProChamber Spacer See Rx Instructions .Route Rx Instructions: As directed divalproex [Depakote ER] 250 mg tablet extended release 24 hr 1,500 mg PO QHS 30 Days Qty: 180 3RF budesonide-formoterol [Symbicort] 160-4.5 mcg/actuation HFA aerosol inhaler 1 puff inhalation BID Qty: 10.2 3RF albuterol sulfate 90 mcg/actuation HFA aerosol inhaler 2 puff inhalation Q6H PRN (Reason: shortness of breath or wheezing) Qty: 8.5 2RF Discharge Instructions Instructions: Appendectomy, Laparoscopic Surgery (DC) Additional Instructions: Anthony, it was great meeting you today, and I hope you make a quick recovery after the procedure. Things went very smoothly. Your appendix was quite infla med, and certainly was the source of your pain. We were able to remove it with the camera just like we spoke about beforehand. As you get home, expect to have some pain around the incision sites, and perhaps some down on the right side where your appendix was. You may experience quite a bit of bruising around the incisions. That is extremely common and nothing to worry about. Ice packs over the incisions will be very helpful with pain and swelling after surgery. I also recommend that you alternate Tylenol and ibuprofen every 6 hours for the first 2 days. I did put in a prescription for some stronger pain medications if you need that. I have gone ahead and made an appointment in my office for follow-up on February 23 at 2:45 PM. In the meantime, you should be up and walking around a little bit getting some basic exercise. Do not lift anything more than a gallon of milk. Will see how you are feeling at the office visit, and assuming everything looks good and is healing, then we will loosen up. Restrictions at that point. If you need anything or have any questions at all, please do not hesitate to call or ask. 1. Resume all of your regular medications. 2. Use ice packs over the incisions to help with pain 3. Alternate [id number] Tylenol and ibuprofen every 6 hours for the first 2 days, then use them as needed. Use the prescription for tramadol if you need that for more severe pain 4. Leave bandage in place for 24 hours, then remove. 5. Shower with warm soapy water. Pat dry. Use a bandaid if needed to protect your clothing. 6. No soaking or tub baths until I see you in the office. 7. No heavy lifting until I see you in the office. 8. Call the office (or go directly to the emergency room after hours) if you notice any of the following: Develop chills (warm to touch), or if you have a thermometer and your temperature is above 101 Difficulty breathing or difficultly swallowing Persistent vomiting Any bleeding ? exceeding one tablespoon 9. Call your physician if the site where your intravenous was started becomes red, swollen, painful, and warm to touch. Stand Alone Forms: Anesthesia Discharge Elle Mckeon (DSU) Referrals: Didier Nguyen MD [ [facility] STAFF PHYSICIAN] - (February 23 at 2:45 PM) Activity:: No heavy lifting Remove Dressings/Wound Care:: 24 hours Shower/Bathe:: 24 hours Diet:: As Tolerated DS: Diagnosis Discharge Diagnosis (1) Acute appendicitis: Status: Acute Asessment and Plan: Outpatient postoperative follow-up
--- NOTE | 2025-02-07 15:03 | W.PM.OP ---
Operative Note Operative Note PRE-OP DIAGNOSIS: Acute appendicitis POST-OP DIAGNOSIS: same PROCEDURE: Acute appendicitis SURGEON: Didier Nguyen FASHION DIRECTOR [employer] SALES: Camille Osorio ANESTHESIA TYPE: Local By Surgeon and General LMA/ETT Refer to Anesthesia Record ESTIMATED BLOOD LOSS: 25 PATHOLOGY: other (Appendix with lymph node) COMPLICATIONS: None Patient was transported to: PACU Patient's condition: stable Indications: Zane is a 59-year-old male with acute appendicitis Findings: Acute appendicitis Procedure Description: After the induction of general anesthesia, I prepped and draped the anterior abdominal wall in the usual fashion. Next, I made an umbilical incision. Using a 5 mm optical viewing port, I entered the peritoneal cavity under direct vision and establish pneumoperitoneum. A 5 mm port was placed in the left lower quadrant with the assistance of the laparoscope, and a 12 mm port was placed in the suprapubic position. I then moved the scope into the left lower quadrant, and positioned the patient with some Trendelenburg and left side down. I started by examining the area of the right lower quadrant. I reflected the greater omentum cephalad and identified the terminal ileum. I traced this to the insertion at the cecum and then identified the base of the appendix at the confluence of the cecal tenia. Next, I mobilized the appendix which did appear acutely inflamed. There was some fibrinous exudate along the main body of the appendix. Once the appendix was mobilized away from the right lower quadrant I used sequential firings of the LigaSure to divide the mesoappendix. In dissecting this, a small bit of tissue that appeared consistent with a lymph node was mobilized out of the mesentery. This was removed and saved for pathology. Once this was complete I divided the appendix from the cecum at its base with a KEYON stapler. I placed the appendix into an Endo Catch bag and removed through the umbilical port site. I examined the surgical field. The staple line looked fine. There was no contamination or spillage and the surgical field was hemostatic. The 12 mm port was removed, and a Elias Figueroa wound closure device was used to reapproximate the fascia here. The left lower quadrant port was removed. It was hemostatic. Once the insufflation gas was all removed by way of the umbilical port, this was also taken out. Skin and subcutaneous tissues were closed with absorbable sutures, bandages were applied. Zane was then awoken from the anesthetic, extubated, transferred to the recovery unit Date of Procedure: 02/07/25
--- NOTE | 2025-02-07 15:04 | W.ED.GENAD ---
Discharge Plan Disposition Patient Disposition: Admit to [facility] Condition: Serious Discharge Details Clinical Impression: Acute appendicitis Attending Provider: Didier Nguyen Primary Care Provider: Elisa Parikh ED Provider: Kathy Ruiz General Date/Time Provider Initiated Documentation: 02/07/25 09:07. HPI Narrative: 59-year-old male with abdominal pain since last evening, accompanied by nausea and vomiting. Pain worsens with movement. Experienced dark vomitus, no coagulopathy or ibuprofen use. Vomiting throughout the evening, last episode last evening. No urinary symptoms. Related Data Home Medications ?Medication ?Instructions ?Recorded ?Confirmed inhalational spacing device 02/19/24 02/07/25 (ProChamber) epinephrine 0.3 mg/0.3 mL 0.3 mg (0.3 mL) IM ONCE PRN 05/26/24 02/07/25 injection, auto-injector (EpiPen anaphylaxis #2 ea 2-Tucker) Depakote ER 250 mg tablet,extended 1,500 mg (6 x 250 mg) PO QHS 30 07/13/24 02/07/25 release (divalproex) days #180 tabs albuterol sulfate 90 mcg/actuation 2 puff inhalation Q6H PRN 07/13/24 02/07/25 aerosol inhaler shortness of breath or wheezing #8.5 grams budesonide-formoterol HFA 160 1 puff inhalation BID #10.2 grams 07/13/24 02/07/25 mcg-4.5 mcg/actuation aerosol inhaler (Symbicort) celecoxib 100 mg capsule (Celebrex) 100 mg PO BID PRN pain #60 caps 09/23/24 02/07/25 tramadol 50 mg tablet 50 mg PO Q8H PRN #9 tabs 02/07/25 Previous Rx's ?Medication ?Instructions ?Recorded epinephrine 0.3 mg/0.3 mL 0.3 mg (0.3 mL) IM ONCE PRN 05/26/24 injection, auto-injector (EpiPen anaphylaxis #2 ea 2-Tucker) Depakote ER 250 mg tablet,extended 1,500 mg (6 x 250 mg) PO QHS 30 07/13/24 release (divalproex) days #180 tabs albuterol sulfate 90 mcg/actuation 2 puff inhalation Q6H PRN 07/13/24 aerosol inhaler shortness of breath or wheezing #8.5 grams budesonide-formoterol HFA 160 1 puff inhalation BID #10.2 grams 07/13/24 mcg-4.5 mcg/actuation aerosol inhaler (Symbicort) celecoxib 100 mg capsule (Celebrex) 100 mg PO BID PRN pain #60 caps 09/23/24 tramadol 50 mg tablet 50 mg PO Q8H PRN #9 tabs 02/07/25 Allergies Allergy/AdvReac Type Severity Reaction Status Date / Time bee venom protein (honey bee) Allergy Severe Anaphylaxis Verified 02/07/25 09:01 Penicillins Allergy Severe Anaphylaxis Verified 02/07/25 09:01 quetiapine (From Seroquel) AdvReac Intermediate Other (See Verified 02/07/25 09:01 Comment) fluoxetine (From Prozac) AdvReac Becomes Verified 02/07/25 09:01 violent sertraline (From Zoloft) AdvReac Irritable Verified 02/07/25 09:01 General Stated Complaint: Abd Prob MARCIE: 3 Exam Narrative Exam Narrative: General Appearance: Normal. Vital signs: Within normal limits. HEENT: Within normal limits. Respiratory: Within normal limits. Cardiovascular: Distal pulses intact bilaterally. Gastrointestinal: Acute abdomen with focal peritonitis. No abdominal bruit or pulsatile mass. Back, Musculoskeletal: No CVA tenderness. Skin: Warm and dry, no rash. Neurological: Normal. Course Vital Signs Vital signs: Vital Signs Temperature 36.6 C 02/07/25 08:58 Pulse 76 02/07/25 08:58 Respiratory Rate 22 02/07/25 08:58 Blood Pressure 193/111 H 02/07/25 08:58 Pulse Oximetry 98 02/07/25 08:58 Temperature 36.6 C 02/07/25 10:20 Temperature Source Oral 02/07/25 08:58 Pulse 64 02/07/25 13:16 Pulse 64 02/07/25 13:16 Respiratory Rate 7 L 02/07/25 13:16 Blood Pressure 183/97 H 02/07/25 13:16 Blood Pressure Mean 128 02/07/25 13:16 Blood Pressure Position Sitting 02/07/25 08:58 Pulse Oximetry 97 02/07/25 13:16 Oxygen Delivery Method Room Air 02/07/25 08:58 Oxygen Flow Rate 0 02/07/25 08:58 Pain Level 9 02/07/25 09:52 Lab/Test Results Lab/Test Results: Laboratory Tests Range/Units 02/07/25 02/07/25 09:35 10:48 WBC (4.4-10.8) 10^3/uL 15.17 H RBC (4.36-5.78) 10^6/uL 5.94 H Hgb (13.5-17.5) g/dL 16.4 Hct (40.0-50.0) % 48.5 MCV (80-95) fL 82 MCH (27.0-33.0) pg 27.6 MCHC (32.0-36.0) % 33.8 RDW (11.8-14.1) % 12.7 Plt Count (130-400) 10^3/uL 207 MPV (8.0-11.0) fL 10.0 Immature Gran % % 0.5 Neutrophils % % 76.0 Lymphocytes % % 10.7 Monocytes % % 12.5 Eosinophils % % 0.1 Basophils % % 0.2 Nucleated RBC % (0.0-0.3) % 0.0 Absolute Neutrophils (1.2-6.7) 10^3/uL 11.53 H Absolute Lymphocytes (1.2-3.4) 10^3/uL 1.62 Absolute Monocytes (0.1-0.8) 10^3/uL 1.90 H Absolute Eosinophils (0.0-0.7) 10^3/uL 0.02 Absolute Basophils (0.0-0.2) 10^3/uL 0.03 RBC Morphology Normal Sodium (136-145) mmol/L 140 Potassium (3.5-5.1) mmol/L 4.1 Chloride (98-107) mmol/L 102 Carbon Dioxide (21.0-32.0) mmol/L 30.4 Anion Gap (3-11) mmol/L 7.6 BUN (7-18) mg/dL 13 Creatinine (0.70-1.30) mg/dL 1.1 Est GFR (CKD-EPI 2020) (mL/min/1.73m2) 76.37 Glucose (74-106) mg/dL 109 H Calcium (8.5-10.1) mg/dL 9.9 Total Bilirubin (0.2-1.0) mg/dL 1.9 H AST (15-37) U/L 19 ALT (16-63) U/L 20 Alkaline Phosphatase (46-116) U/L 100 Troponin I (<or=76) ng/L 11 11 Total Protein (6.4-8.2) g/dL 8.0 Albumin (3.4-5.0) g/dL 4.5 Lipase (<78) U/L 42 ABO/Rh B Positive Antibody Screen NEGATIVE Medical Decision Making Leukocytosis 15,000. CT chest, abdomen, and pelvis: acute retrocecal appendicitis, this was personally discussed neurologist Dr. Choudhury. EKG: no QTc prolongation. Initial Assessment: 59-year-old male presenting with abdominal pain, nausea, and vomiting since last evening. Pain worsens with movement. No urinary symptoms. Episode of dark vomitus. No history of coagulopathy or ibuprofen use. Acute abdomen with peritonitis focally. No CVA tenderness, abdominal bruit, or pulsatile mass. Distal pulses intact in bilateral lower extremities. ED Course: - CT chest, abdomen, and pelvis ordered due to acuity of pain; shows evidence of acute retrocecal appendicitis. - Elevated WBC at 15,000. - Initiated Cipro and Flagyl after EKG review; no QTc prolongation. - Patient tolerated morphine, fluids, and Zofran without incident. - Consulted Dr. Nguyen for OR. - Patient has remained NPO since last evening. Final Assessment: Patient diagnosed with acute retrocecal appendicitis confirmed by CT. Elevated WBC at 15,000. Initiated antibiotics (Cipro and Flagyl) after confirming no QTc prolongation on EKG. Patient tolerated morphine, fluids, and Zofran. Surgical consultation with Dr. Nguyen for OR. Clinical Impression: - Acute retrocecal appendicitis Disposition: - Admission for surgery Patient Education: Reviewed return precautions, patient expressed understanding. MDM Components Evaluation: - Number of Differential Diagnoses or Management Options: Acute appendicitis - Amount and Complexity of Data Reviewed: CT chest, abdomen, and pelvis; EKG - Risk of Complication and Morbidity or Mortality: High risk due to acute appendicitis requiring surgical intervention. Quality:SDOH Health Related Social Needs: Health related social needs details pt with DX of depression see note- not new dx PFSH All Active Problems (Updated 02/07/25 @ 15:07 by ANA Garrido) Acute appendicitis (Acute) 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 (Acute) Glenoid chondromalacia of left shoulder (Acute) Bursitis of left shoulder (Acute) SLAP lesion of left shoulder (Acute) Arthritis of left acromioclavicular joint (Acute) Left rotator cuff tear (Acute) Preventative health care (Acute) Shoulder pain, left (Acute) Moderate persistent asthma (Acute) Essential hypertension (Acute) Severe recurrent major depression with psychotic features (Acute) Schizophrenia (Chronic) Medical History Hypothyroidism Family History Brother Alcohol use disorder Social History Smoking/Tobacco Use Status: Former Tobacco Use Quit Date: 09/14/98 Second Hand Exposure: Yes Smoking risk assessment performed?: Yes Alcohol Intake: former Drug use: Daily Substance use type: marijuana Adopted: No Caregiver/Support person: No Household members: significant other Housing: apartment Number of Children: 1 number of grandchildren: 0 Communication Needs: Corrective Lenses Education Level: middle school Do you need help understanding health information?: Always current occupation: disabled/retired Pets and animals: Yes (1) Pets and animals: dog(s) Sexually active: No Do you think of yourself as: straight/heterosexual Current gender identity: male How often do you talk on the phone with friends or family?: never How often do you get together with friends or relatives?: never Do you belong to any clubs or organized social groups?: no Panel score (0-1 are the most socially isolated patients): 0 What type of physical activity do you participate in: additional Details: Yard work Duration: > 90 minutes/day Glenna/Caodaism: None Special glenna needs: No Seatbelt use: always Drive intox or ride w/intox 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
[2025-02-07] MEDS: HYDROmorphone 2 MG/ML SYR IVP (15:43)
--- NOTE | 2025-02-07 16:40 | W.ANESPOSTOP ---
Postoperative Evaluation Date, Time and Location Date Performed: 02/07/25 Time Performed: 16:04 Patient Location: PACU Vital Signs Most Recent Imported Vital Signs: Most Recent Vital Signs Temp Pulse Resp BP Pulse Ox 36.4 C L 60 14 163/88 H 97 02/07/25 16:04 02/07/25 16:04 02/07/25 16:04 02/07/25 16:04 02/07/25 16:04 Pain Score Most Recent Pain Score: Most Recent Pain Score Pain Level 2 02/07/25 16:04 Assessment Mental Status: Awake (Alert & Oriented to Patient Baseline) Airway and Respiratory Function: Patent airway with normal (patient baseline) respiratory exam Cardiovascular Function: Hemodynamically Stable Hydration Status: Adequately Hydrated Nausea & Vomiting: No Nausea or Vomiting Pain: Pain is tolerable per patient Peripheral Nerve Block: Patient did not receive a nerve block
== END 2025-02-07 17:10 | disposition home or self-care (01) ==
LOC: ER 12:17 → SUR 14:28
PROVIDERS: Emergency Provider Physician Assistant; PCP Nurse Practitioner Family; Visit Provider Surgery
PROC: 0DTJ4ZZ Resection of Appendix, Percutaneous Endoscopic Approach (ICD-10-PCS; CPT 44970; principal; 2025-02-07 13:45)
DX: I10 Essential (primary) hypertension; K35.890 Other acute appendicitis without perforation or gangrene
CPT/HCPCS: 44970; 36415; 71275; 80053; 83690; 86850; 86900; 86901; 93005; 96361; 96365; 96375; 99285; 74174; 84484; 85025; 88304; 93010; J0131; J0744; J1100; J1171; J1836; J1885; J2003; J2250; J2270; J2405; J2470; J2704; J3475; J3490; Q9967

== ENCOUNTER 2025-02-13 15:30 | Outpatient (CLI) | payer MEDICAID, SELFPAY ==
[2025-02-13 15:13] LABS: HCT 39.5 % (40.0-50.0); HGB 13.2 g/dL (13.5-17.5); MCH 27.6 pg (27.0-33.0); MCHC 33.4 % (32.0-36.0); MCV 83 fL (80-95); MPV 9.5 fL (8.0-11.0); Platelet Count 249 10^3/uL (130-400); RBC 4.78 10^6/uL (4.36-5.78); RDW 13.1 % (11.8-14.1); RDW-SD 38.5 fL
== END 2025-02-13 15:31 | disposition home or self-care (01) ==
LOC: LBO 15:30
PROVIDERS: PCP Nurse Practitioner Family; Visit Provider Surgery
DX: Z77.011 Contact with and (suspected) exposure to lead (principal); K35.80 Unspecified acute appendicitis
CPT/HCPCS: 36415; 85027; 83655

== ENCOUNTER 2025-02-17 17:13 | Observation (INO) | payer MEDICAID, SELFPAY ==
[2025-02-17 17:38] VITALS: BP 133/81; PULSE 94; RESP 16; TEMP 36.6; O2SAT 95
[2025-02-17 18:16] LABS: Lactate 1.6 mmol/L (<or=2.0)
[2025-02-17] MEDS: MORPHine 4 MG/ML SYR IVP (18:16)
[2025-02-17] MEDS: Normal Saline 1,000 ML 1000 ML IV (18:17)
[2025-02-17] MEDS: ACETAMINOPHEN 1,000 MG/100 ML BAG 400 MG IVPB (18:17)
[2025-02-17 18:19] LABS: Abs Immature Grans 0.15 10^3/uL (0.0-0.06); Absolute Basophil Count 0.03 10^3/uL (0.0-0.2); Absolute Eosinophil Count 0.21 10^3/uL (0.0-0.7); Absolute Lymphocyte Count 2.19 10^3/uL (1.2-3.4); Absolute Monocyte Count 0.97 10^3/uL (0.1-0.8); Absolute Neutrophil Count 5.88 10^3/uL (1.2-6.7); Basophils % 0.3 %; Eosinophils % 2.2 %; HCT 39.1 % (40.0-50.0); HGB 13.2 g/dL (13.5-17.5); Immature Grans % 1.6 %; Lymphocytes % 23.2 %; MCH 28.1 pg (27.0-33.0); MCHC 33.8 % (32.0-36.0); MCV 83 fL (80-95); MPV 9.9 fL (8.0-11.0); Monocytes % 10.3 %; Neutrophils % 62.4 %; Platelet Count 250 10^3/uL (130-400); RDW 13.1 % (11.8-14.1); WBC 9.43 10^3/uL (4.4-10.8)
[2025-02-17 18:31] LABS: Lipase 62 U/L (<78)
[2025-02-17] MEDS: Normal Saline - Diluent 50 ML VIAL IJ (18:31)
[2025-02-17] MEDS: Omnipaque 350 MG/ML 100 ML BTL IJ (18:36)
--- NOTE | 2025-02-17 18:39 | DI.CT_ITS ---
Exam(s) CT ABDOMEN PELVIS W EXAM: CT ABDOMEN PELVIS W CLINICAL HISTORY: RLQ pain, s/p appy TECHNIQUE: Imaging Protocol: Axial computed tomography images with coronal and sagittal reformatted images were created and reviewed. CONTRAST MATERIAL: Intravenous: Omnipaque 350 Contrast volume:100 mL Oral: No COMPARISON: CT CT THORAX ABD/PEL CTA from 02/07/2025 FINDINGS: ABDOMEN: Lung Bases: No acute abnormality. Liver: Normal density. There again seen several hepatic cysts. No suspicious hepatic lesions are pre sent. Portal, Superior Mesenteric, and Splenic Veins: Unremarkable. Gallbladder and Biliary Tract: No radiodense calculus or dilation. Pancreas: Normal density, no abnormal calcifications or inflammatory process. Spleen: Normal. Adrenals: No masses seen. Kidneys: Normal size, contour and axis. No radiodense stones or obstructive uropathy. Small cysts are seen in the kidneys. No follow-up is recommended. No suspicious renal masses are present. Abdominal Aorta: Abdominal portion non-dilated. Atherosclerotic calcification is present. Bowel: No obstruction or bowel wall thickening. The patient is now status post appendectomy. Peritoneal Cavity: There is a small amount of fluid seen in the dependent portion of the pelvis. The re is fluid seen in the right pericolic gutter. It appears partially in capsulated suspicious for an abscess. The collection measures 13 cm long by 8 cm AP x 3 cm transverse. No free air. Lymph Nodes: Within normal limits. Bones: Within normal limits for the patient's age. Soft Tissues: There is a small fat containing umbilical hernia. PELVIS: Bladder: Symmetric distention, no gross wall thickening. Reproductive Organs: Unremarkable as visualized. Lymph Nodes: Within normal limits. Bones: Within normal limits for the patient's age. IMPRESSION: 1. Status post appendectomy since 02/07/2025. 2. Fluid collection in the right pericolic gutter which appears at least partly encapsulated. Absces s should be considered. 3. Small amount of free fluid in the pelvis. 4. No evidence of pneumoperitoneum. RADIATION DOSE DELIVERED: 719.17mGy.cm Total DLP DATA REPOSITORY: All CT scans at this facility are submitted to the National Radiology Data Registry (NRDR) Dose Index Registry (DIR) with the [employer] (ACR). RADIATION OPTIMIZATION: All CT scans at this facility use at least one of these dose optimization te chniques: automated exposure control; mA and/or kV adjustment per patient size (includes targeted exa ms where dose is matched to clinical indication); or iterative reconstruction.
[2025-02-17 18:45] LABS: ALT 26 U/L (16-63); AST 21 U/L (15-37); Alkaline Phosphatase 91 U/L (46-116); Anion Gap 7.7 mmol/L (3-11); BUN 14 mg/dL (7-18); CO2 30.3 mmol/L (21.0-32.0); CREATININE 1.1 mg/dL (0.70-1.30); Calcium 8.8 mg/dL (8.5-10.1); Chloride 105 mmol/L (98-107); Estimated GFR 76.37 (mL/min/1.73m2); Glucose 125 mg/dL (74-106); Potassium 4.1 mmol/L (3.5-5.1); Sodium 143 mmol/L (136-145); Total Protein 7.2 g/dL (6.4-8.2)
--- NOTE | 2025-02-17 19:31 | W.PM.HP.N ---
Date of service: 02/17/25 Time of Service: 19:32 Assessment and Plan Assessment and plan (1) Acute appendicitis: Status: Acute Assessment and plan: Certainly, with the inflammation of his appendix, he is plenty of risk factors for a postoperative abscess. Although it is quite interesting that he remains afebrile, and has a normal leukocytosis. In that regard, I suppose it is also possible that this is a simple postoperative hematoma. For now, we will start him on some broad-spectrum antibiotics, and I will trend the CRP. We can see how his symptoms evolve over the next few days. If he improves, we may build to manage this without any type of intervention. Alternatively, if symptoms persist, or certainly worsen, then I think a percutaneous drain is probably the next most reasonable approach. History of Present Illness History of Present Illness Chief Complaint: abdominal pain Narrative: Zane is 59 years old. He underwent laparoscopic appendectomy for acute appendicitis on February 07. He was discharged home afterwards, and initially felt pretty well at home. Few days after that, he noticed increasing abdominal pain, mostly in the periumbilical area. We actually brought him back into the office early for this complaint. At that time, the abdomen was soft and nondistended. Bowel sounds were quite hypoactive, but the remainder the exam was reassuring. He had some associated constipation with this, MiraLAX was started. He underwent an outpatient CBC which was normal. Unfortunately, his pain continued throughout the course of the past few days, and he came back to the emergency department for evaluation. Heart rate was a little bit elevated in the emergency department, but repeat CBC was also within normal limits. He underwent a CT scan of the abdomen and pelvis that demonstrated a fluid collection along the ascending colon with some features consistent with an postoperative abscess. Has been started on broad-spectrum antibiotics. Review of Systems Constitutional Constitutional: Reports fatigue and Denies fever(s) Eyes Eyes: Reports system reviewed and no additional complaints, except as documented ENT Ears, Nose, Mouth, and Throat: Reports system reviewed and no additional complaints, except as documented Cardiovascular Cardiovascular: Denies chest pain and Denies dyspnea Respiratory Respiratory: Denies chest congestion, Reports cough and Denies dyspnea Gastrointestinal Gastrointestinal: Reports abdominal pain, Denies diarrhea, Denies nausea and Denies vomiting Genitourinary Genitourinary: Reports system reviewed and no additional complaints, except as documented Musculoskeletal Musculoskeletal: Reports abnormal gait, Reports back pain and Reports myalgias Neurologic Neurologic: Reports abnormal gait Psychiatric Psychiatric: Reports system reviewed and no additional complaints, except as documented Endocrine Endocrine: Reports fatigue Hematologic/Lymphatic Hematologic/Lymphatic: Denies easy bleeding and Denies easy bruising PFSH All Active Problems (Updated 02/07/25 @ 15:07 by ANA Garrido) Acute appendicitis (Acute) 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 (Acute) Glenoid chondromalacia of left shoulder (Acute) Bursitis of left shoulder (Acute) SLAP lesion of left shoulder (Acute) Arthritis of left acromioclavicular joint (Acute) Left rotator cuff tear (Acute) Preventative health care (Acute) Shoulder pain, left (Acute) Moderate persistent asthma (Acute) Essential hypertension (Acute) Severe recurrent major depression with psychotic features (Acute) Schizophrenia (Chronic) Medical History Hypothyroidism Family History Brother Alcohol use disorder Social History Smoking/Tobacco Use Status: Former Tobacco Use Quit Date: 09/14/98 Second Hand Exposure: Yes Smoking risk assessment performed?: Yes Alcohol Intake: former Drug use: Daily Substance use type: marijuana Adopted: No Caregiver/Support person: No Household members: significant other Housing: house Number of Children: 1 number of grandchildren: 0 Communication Needs: Corrective Lenses Education Level: middle school Do you need help understanding health information?: Always current occupation: disabled/retired Pets and animals: Yes (1) Pets and animals: dog(s) Sexually active: No Do you think of yourself as: straight/heterosexual Current gender identity: male How often do you talk on the phone with friends or family?: never How often do you get together with friends or relatives?: never Do you belong to any clubs or organized social groups?: no Panel score (0-1 are the most socially isolated patients): 0 What type of physical activity do you participate in: additional Details: Yard work Duration: > 90 minutes/day Glenna/Christian: None Special glenna needs: No Seatbelt use: always Drive intox or ride w/intox 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 Do you feel safe at home: Yes Do you feel safe in your relationship?: Yes Meds Allergies and Home Medications Allergies Allergy/AdvReac Type Severity Reaction Status Date / Time bee venom protein (honey bee) Allergy Severe Anaphylaxis Verified 02/17/25 17:43 Penicillins Allergy Severe Anaphylaxis Verified 02/17/25 17:43 quetiapine (From Seroquel) AdvReac Intermediate Other (See Verified 02/17/25 17:43 Comment) fluoxetine (From Prozac) AdvReac Becomes Verified 02/17/25 17:43 violent sertraline (From Zoloft) AdvReac Irritable Verified 02/17/25 17:43 Home Medications ?Medication ?Instructions ?Recorded ?Confirmed ?Type inhalational spacing device 02/19/24 02/17/25 History (ProChamber) epinephrine 0.3 mg/0.3 mL 0.3 mg (0.3 mL) IM ONCE PRN 05/26/24 02/17/25 Rx injection, auto-injector (EpiPen anaphylaxis #2 ea 2-Tucker) Depakote ER 250 mg tablet,extended 1,500 mg (6 x 250 mg) PO QHS 30 07/13/24 02/17/25 Rx release (divalproex) days #180 tabs albuterol sulfate 90 mcg/actuation 2 puff inhalation Q6H PRN 07/13/24 02/17/25 Rx aerosol inhaler shortness of breath or wheezing #8.5 grams budesonide-formoterol HFA 160 1 puff inhalation BID #10.2 grams 07/13/24 02/17/25 Rx mcg-4.5 mcg/actuation aerosol inhaler (Symbicort) celecoxib 100 mg capsule (Celebrex) 100 mg PO BID PRN pain #60 caps 09/23/24 02/17/25 Rx tramadol 50 mg tablet 50 mg PO Q8H PRN #9 tabs 02/07/25 02/17/25 Rx polyethylene glycol 3350 17 17 g PO BID #119 grams 02/13/25 02/17/25 Rx gram/dose oral powder (Miralax) Exam Const General: cooperative and comfortable Nutritional Appearance: overweight Orientation: alert, awake and oriented x3 HENMT Head: normal to inspection Eyes General: appearance normal, both eyes and all related structures GI Inspection: normal to inspection and non-distended Palpation: soft, not firm, no hernias, no masses, not rigid and tender (Right abdomen) Results Imaging Abdomen CT scan report/results: report reviewed and image reviewed CT scan - pelvis: report reviewed and image reviewed Labs 02/18/25 05:03 02/17/25 18:09 Labs: Laboratory Results - last 24 hr 02/17/25 18:09 WBC 9.43 RBC 4.70 Hgb 13.2 L Hct 39.1 L MCV 83 MCH 28.1 MCHC 33.8 RDW 13.1 Plt Count 250 MPV 9.9 Immature Gran % 1.6 Neutrophils % 62.4 Lymphocytes % 23.2 Monocytes % 10.3 Eosinophils % 2.2 Basophils % 0.3 Nucleated RBC % 0.0 Absolute Neutrophils 5.88 Absolute Lymphocytes 2.19 Absolute Monocytes 0.97 H Absolute Eosinophils 0.21 Absolute Basophils 0.03 VBG Lactate 1.6 Sodium 143 Potassium 4.1 Chloride 105 Carbon Dioxide 30.3 Anion Gap 7.7 BUN 14 Creatinine 1.1 Est GFR (CKD-EPI 2020) 76.37 Glucose 125 H Calcium 8.8 Total Bilirubin 2.0 H AST 21 ALT 26 Alkaline Phosphatase 91 Total Protein 7.2 Albumin 4.0 Lipase 62 Last Vital Signs Temp 97.9 F 02/17/25 17:38 Pulse 94 H 02/17/25 17:38 Resp 16 02/17/25 17:38 BP 133/81 02/17/25 17:38 Pulse Ox 95 02/17/25 17:38 Time Spent Time spent with Patient: 40-54 minutes Time was spent: preparing to see the patient(eg.review tests), ordering medications,tests, procedures, referring, communicating with other health managed care coordinator, indepentently interpreting results, counseling the patient and care coordination
[2025-02-17 19:42] VITALS: BP 123/73; PULSE 78; RESP 18; O2SAT 97
[2025-02-17] MEDS: CIPROFLOXACIN 400 MG/200 ML BAG 200 MG IVPB (19:43)
[2025-02-17] MEDS: metroNIDAZOLE 500 MG/100 ML BAG 100 MG IVPB (19:43)
--- NOTE | 2025-02-17 20:21 | W.PCEDHO ---
Registration Status: Primary Language: Preferred Language: ED Information & Data Chief Complaint Recheck 02/17/25 18:13 Chief Complaint Recheck 02/17/25 17:38 Triage Note Patient state he did 02/17/25 17:38 appendectomy 1 week ago and shoulder surgery 1 month before that. Presented today with having pain to the right lower quadrant if he takes a deep breath, if he eats says this has been going on for the past couple of days.Initially he thought its due to him being constipated and he got medications for that, but the pain is not getting any better Medical / Surgical History (Last Reviewed 02/07/25 @ 12:47 by Carlos Jaeger CRNA) Hypothyroidism Most Recent Vital Signs Temperature 36.6 C 02/17/25 17:38 Temperature Source Oral 02/17/25 17:38 Pulse 78 02/17/25 19:42 Respiratory Rate 18 02/17/25 19:42 Blood Pressure 123/73 02/17/25 19:42 Blood Pressure Mean 89 02/17/25 19:42 Blood Pressure Position Sitting 02/17/25 17:38 Pulse Oximetry 97 02/17/25 19:42 Oxygen Delivery Method Room Air 02/17/25 19:42 Oxygen Flow Rate 0 02/17/25 19:42 Pain Level 7 02/17/25 17:38 Allergies bee venom protein (honey bee) Allergy (Severe, Verified 02/17/25 17:43) Anaphylaxis Penicillins Allergy (Severe, Verified 02/17/25 17:43) Anaphylaxis quetiapine (From Seroquel) Adverse Reaction (Intermediate, Verified 02/17/25 17:43) Other (See Comment) hypersomonolence fluoxetine (From Prozac) Adverse Reaction (Verified 02/17/25 17:43) Becomes violent sertraline (From Zoloft) Adverse Reaction (Verified 02/17/25 17:43) Irritable Active Medications Generic Name Dose Route Start Last Admin Trade Name Freq PRN Reason Stop Dose Admin Metronidazole 500 mg in 100 mls @ 100 mls/hr 02/17/25 19:15 02/17/25 19:43 Flagyl IVPB 100 mls/hr Q8H ELDA Administration Iohexol 100 ml 02/17/25 18:45 02/17/25 18:36 Omnipaque 350 Mg/Ml 100 Ml Btl IJ 03/19/25 23:59 100 ml DIRECTED ELDA Administration Sodium Chloride 50 ml 02/17/25 18:30 02/17/25 18:31 Normal Saline - Diluent 50 Ml Vial IJ 50 ml .FOR DI USE ELDA Administration IV IV Catheter Type [Right Saline Lock Antecubital] IV Catheter Gauge [Right 20 Antecubital] Diagnostics 02/17/25 Range/Units 18:09 WBC 9.43 (4.4-10.8) 10^3/uL RBC 4.70 (4.36-5.78) 10^6/uL Hgb 13.2 L (13.5-17.5) g/dL Hct 39.1 L (40.0-50.0) % MCV 83 (80-95) fL MCH 28.1 (27.0-33.0) pg MCHC 33.8 (32.0-36.0) % RDW 13.1 (11.8-14.1) % Plt Count 250 (130-400) 10^3/uL MPV 9.9 (8.0-11.0) fL Immature Gran % 1.6 % Neutrophils % 62.4 % Lymphocytes % 23.2 % Monocytes % 10.3 % Eosinophils % 2.2 % Basophils % 0.3 % Nucleated RBC % 0.0 (0.0-0.3) % Absolute Neutrophils 5.88 (1.2-6.7) 10^3/uL Absolute Lymphocytes 2.19 (1.2-3.4) 10^3/uL Absolute Monocytes 0.97 H (0.1-0.8) 10^3/uL Absolute Eosinophils 0.21 (0.0-0.7) 10^3/uL Absolute Basophils 0.03 (0.0-0.2) 10^3/uL VBG Lactate 1.6 (<or=2.0) mmol/L Sodium 143 (136-145) mmol/L Potassium 4.1 (3.5-5.1) mmol/L Chloride 105 (98-107) mmol/L Carbon Dioxide 30.3 (21.0-32.0) mmol/L Anion Gap 7.7 (3-11) mmol/L BUN 14 (7-18) mg/dL Creatinine 1.1 (0.70-1.30) mg/dL Est GFR (CKD-EPI 2020) 76.37 (mL/min/1.73m2) Glucose 125 H (74-106) mg/dL Calcium 8.8 (8.5-10.1) mg/dL Total Bilirubin 2.0 H (0.2-1.0) mg/dL AST 21 (15-37) U/L ALT 26 (16-63) U/L Alkaline Phosphatase 91 (46-116) U/L Total Protein 7.2 (6.4-8.2) g/dL Albumin 4.0 (3.4-5.0) g/dL Lipase 62 (<78) U/L 02/17/25 19:28 Blood Culture - Pending Blood 02/17/25 18:10 Blood Culture - Pending Blood Intake and Output - 24 Hour Total 02/17/25 17:13 thru 02/17/25 17:38 Weight 112.491 kg Falls Risk Assessment Contributing Factors No Factors 02/17/25 18:14 Ambulatory Aids Independent 02/17/25 18:14 Tubes/Lines None 02/17/25 18:14 Gait Evaluation No gait disturbance 02/17/25 18:14 Cognition No cognitive impairment 02/17/25 18:14 Fall Total Score 0 02/17/25 18:14 Level of Risk Standard/Low Risk 02/17/25 18:14 Problems (Last Reviewed 02/07/25 @ 12:47 by Carlos Jaeger CRNA) Acute appendicitis (Acute) v v v v v v v v v Sending and/or Receiving Nurses: Please use comment section below to note any information pertinent to the patient hand-off not included above. Information / Comments:no questions Report received from:Shorty Jones RN
[2025-02-17 21:00] VITALS: BP 123/75; PULSE 70; RESP 20; TEMP 36.5; O2SAT 97
[2025-02-17] MEDS: Budesonide/Formoterol 160/4.5 6 GM 60 PUFF INH IH (22:14)
[2025-02-18] MEDS: Normal Saline Flush 10 ML SYR IVP ×4 (00:02→20:18)
[2025-02-18] MEDS: metroNIDAZOLE 500 MG/100 ML BAG 100 MG IVPB (04:57)
[2025-02-18 05:54] LABS: Abs Immature Grans 0.12 10^3/uL (0.0-0.06); Absolute Basophil Count 0.04 10^3/uL (0.0-0.2); Absolute Monocyte Count 0.84 10^3/uL (0.1-0.8); Basophils % 0.6 %; Eosinophils % 2.9 %; HCT 34.8 % (40.0-50.0); HGB 11.5 g/dL (13.5-17.5); Immature Grans % 1.7 %; Lymphocytes % 24.3 %; MCH 27.8 pg (27.0-33.0); MCV 84 fL (80-95); Neutrophils % 58.5 %; Platelet Count 217 10^3/uL (130-400); RBC 4.14 10^6/uL (4.36-5.78); RDW 13.1 % (11.8-14.1); RDW-SD 39.5 fL
[2025-02-18 06:04] LABS: C-Reactive Protein 1.34 mg/dL (<or=0.5)
[2025-02-18] MEDS: CIPROFLOXACIN 400 MG/200 ML BAG 200 MG IVPB (06:09)
--- NOTE | 2025-02-18 07:36 | PGE_ITS ---
Date of Service Date of service: 02/18/25 Time of Service: 07:36 Assessment and Plan Assessment and plan (1) Peritonitis: Status: Acute Assessment and plan: He clearly has ongoing localized peritonitis, with the fluid collection seen on the CT scan. His white blood cell count has been normal the whole time, and I do not record any fevers here overnight. CRP is only very mildly elevated. I am still quite skeptical that this actually represents an abscess, but it is hard to deny his abdominal pain. In that regard, I think keeping the antibiotics on for another 24 hours or so to see how his symptoms evolve is very reasonable. Once interventional radiology is available, on Thursday, I will consult them and see what their feelings are regarding the possibility of samp ling this fluid collection. Subjective Subjective Interval history since last seen: Zane says he was able to sleep through the night. He continues to have abdominal pain, that is worse with coughing and movements, but otherwise he feels about the same. He denies any nausea or vomiting overnight. He has had no fevers overnight. Exam GI Other: Abdomen remains soft and not distended. His tenderness on the right side is the same as it has been. Objective Last Vital Signs Temp 97.7 F 02/17/25 21:00 Pulse 70 02/17/25 21:00 Resp 20 02/17/25 21:00 BP 123/75 02/17/25 21:00 Pulse Ox 97 02/17/25 21:00 Laboratory Results - last 24 hr 02/17/25 02/18/25 18:09 05:03 WBC 9.43 7.00 RBC 4.70 4.14 L Hgb 13.2 L 11.5 L Hct 39.1 L 34.8 L MCV 83 84 MCH 28.1 27.8 MCHC 33.8 33.0 RDW 13.1 13.1 Plt Count 250 217 MPV 9.9 10.0 Immature Gran % 1.6 1.7 Neutrophils % 62.4 58.5 Lymphocytes % 23.2 24.3 Monocytes % 10.3 12.0 Eosinophils % 2.2 2.9 Basophils % 0.3 0.6 Nucleated RBC % 0.0 0.0 Absolute Neutrophils 5.88 4.10 Absolute Lymphocytes 2.19 1.70 Absolute Monocytes 0.97 H 0.84 H Absolute Eosinophils 0.21 0.20 Absolute Basophils 0.03 0.04 VBG Lactate 1.6 Sodium 143 Potassium 4.1 Chloride 105 Carbon Dioxide 30.3 Anion Gap 7.7 BUN 14 Creatinine 1.1 Est GFR (CKD-EPI 2020) 76.37 Glucose 125 H Calcium 8.8 Total Bilirubin 2.0 H AST 21 ALT 26 Alkaline Phosphatase 91 C-Reactive Protein 1.34 H Total Protein 7.2 Albumin 4.0 Lipase 62 Time Spent with Patient Time Spent with Patient: 25-34 minutes Time was spent: preparing to see the patient(eg.review tests), indepentently interpreting results and counseling the patient
[2025-02-18 07:42] VITALS: BP 139/88; PULSE 64; RESP 16; TEMP 36.6; O2SAT 97
[2025-02-18] MEDS: Budesonide/Formoterol 160/4.5 6 GM 60 PUFF INH IH ×2 (08:28→20:23)
[2025-02-18] MEDS: Acetaminophen 325 MG TAB 650 MG PO (08:55)
--- NOTE | 2025-02-18 13:07 | PHA.REVIEW2 ---
Pharmacy Admission Review Admission Clinical Review Admission Pharmacy Review: Peritonitis (Acute) bee venom protein (honey bee) Allergy (Severe, Verified 02/17/25 17:43) Anaphylaxis Penicillins Allergy (Severe, Verified 02/17/25 17:43) Anaphylaxis quetiapine (From Seroquel) Adverse Reaction (Intermediate, Verified 02/17/25 17:43) Other (See Comment) fluoxetine (From Prozac) Adverse Reaction (Verified 02/17/25 17:43) Becomes violent sertraline (From Zoloft) Adverse Reaction (Verified 02/17/25 17:43) Irritable Resuscitation Status Full Code Height 6 ft Weight 112.491 kg Pharmacy Admission Review Renal Dosing Renal Dosing: BUN 14 mg/dL (7-18) 02/17/25 18:09 Creatinine 1.1 mg/dL (0.70-1.30) 02/17/25 18:09 Medications needing adjustments: Reviewed (CrCl 91.33 mL/min) List of meds needing interventions: Current medications are okay Anticoagulation Anticoagulation: Hgb 11.5 g/dL (13.5-17.5) L 02/18/25 05:03 Hct 34.8 % (40.0-50.0) L 02/18/25 05:03 Plt Count 217 10^3/uL (130-400) 02/18/25 05:03 Creatinine 1.1 mg/dL (0.70-1.30) 02/17/25 18:09 DVT Prophylaxis: Reviewed (hgb decreased from 13.2) Medications: Enoxaparin (40mg daily) Relevant Labs Relevant Labs: Sodium 143 mmol/L (136-145) 02/17/25 18:09 Potassium 4.1 mmol/L (3.5-5.1) 02/17/25 18:09 Chloride 105 mmol/L (98-107) 02/17/25 18:09 C-Reactive Protein 1.34 mg/dL (<or=0.5) H 02/18/25 05:03 Electrolytes, C-Reactive P, ESR: Reviewed Cardiac Review BP, HR, EF%: Reviewed (BP and HR WNL) QTc Review QTc: Reviewed (422 from 02/07/25 - most recent EKG on file) IV to PO Switch IV Medications: Reviewed (ciprofloxacin and metronidazole) Home Meds Home Med List reviewed: Intervened Relevent Home Meds Not ordered & why?: tramadol (PRN) Per patient they can only take brand name Depakote. Order was changed to patients own and med brought in for the patient. I verified the medication, labeled the bottle and sent back up to [facility] Current Meds Current Medication Order Review: Reviewed Pharmacy Antibiotic Review Relevant Labs: Relevant Labs 02/18/25 05:03 C-Reactive Protein 1.34 H WBC 7.00 10^3/uL (4.4-10.8) 02/18/25 05:03 Temperature 36.6 C Pharmacy Antibiotic Activity: C/S review and Reviewed, no change Comments: Patient is on metronidazole and ciprofloxacin, day 1, for peritonitis. Blood cultures pending.
[2025-02-18 15:51] VITALS: BP 136/79; PULSE 64; RESP 15; TEMP 36.2; O2SAT 98
--- NOTE | 2025-02-18 15:58 | W.ED.GENAD ---
Discharge Plan Discharge Details Chief Complaint: Recheck Admit Date/Time: 02/17/25 19:30 Admit Provider: Didier Nguyen Attending Provider: Didier Nguyen Primary Care Provider: Elisa Parikh ED Provider: Kathy Ruiz Discharge Data Discharge Date/Time-TO BE ENTERED AT DEPARTURE: 02/17/25 20:45 HPI General Date/Time Provider Initiated Documentation: 02/17/25 17:33. HPI Narrative: 59-year-old male with schizophrenia, 2 weeks post-appendectomy, presents with worsening RLQ pain, diaphoresis, and intermittent nausea. Pain intensifies with movement. Initially thought to be constipation, took laxatives with good bowel movements, but pain persisted. Alert and oriented. Focal peritonitis in RLQ. No CVA tenderness, no diffuse peritonitis. Distal pulses intact bilaterally. No vomiting. Related Data Home Medications ?Medication ?Instructions ?Recorded ?Confirmed inhalational spacing device 02/19/24 02/17/25 (ProChamber) epinephrine 0.3 mg/0.3 mL 0.3 mg (0.3 mL) IM ONCE PRN 05/26/24 02/17/25 injection, auto-injector (EpiPen anaphylaxis #2 ea 2-Tucker) Depakote ER 250 mg tablet,extended 1,500 mg (6 x 250 mg) PO QHS 30 07/13/24 02/17/25 release (divalproex) days #180 tabs albuterol sulfate 90 mcg/actuation 2 puff inhalation Q6H PRN 07/13/24 02/17/25 aerosol inhaler shortness of breath or wheezing #8.5 grams budesonide-formoterol HFA 160 1 puff inhalation BID #10.2 grams 07/13/24 02/17/25 mcg-4.5 mcg/actuation aerosol inhaler (Symbicort) celecoxib 100 mg capsule (Celebrex) 100 mg PO BID PRN pain #60 caps 09/23/24 02/17/25 tramadol 50 mg tablet 50 mg PO Q8H PRN #9 tabs 02/07/25 02/17/25 polyethylene glycol 3350 17 17 g PO BID #119 grams 02/13/25 02/17/25 gram/dose oral powder (Miralax) Previous Rx's ?Medication ?Instructions ?Recorded epinephrine 0.3 mg/0.3 mL 0.3 mg (0.3 mL) IM ONCE PRN 05/26/24 injection, auto-injector (EpiPen anaphylaxis #2 ea 2-Tucker) Depakote ER 250 mg tablet,extended 1,500 mg (6 x 250 mg) PO QHS 30 07/13/24 release (divalproex) days #180 tabs albuterol sulfate 90 mcg/actuation 2 puff inhalation Q6H PRN 07/13/24 aerosol inhaler shortness of breath or wheezing #8.5 grams budesonide-formoterol HFA 160 1 puff inhalation BID #10.2 grams 07/13/24 mcg-4.5 mcg/actuation aerosol inhaler (Symbicort) celecoxib 100 mg capsule (Celebrex) 100 mg PO BID PRN pain #60 caps 09/23/24 tramadol 50 mg tablet 50 mg PO Q8H PRN #9 tabs 02/07/25 polyethylene glycol 3350 17 17 g PO BID #119 grams 02/13/25 gram/dose oral powder (Miralax) Allergies Allergy/AdvReac Type Severity Reaction Status Date / Time bee venom protein (honey bee) Allergy Severe Anaphylaxis Verified 02/17/25 17:43 Penicillins Allergy Severe Anaphylaxis Verified 02/17/25 17:43 quetiapine (From Seroquel) AdvReac Intermediate Other (See Verified 02/17/25 17:43 Comment) fluoxetine (From Prozac) AdvReac Becomes Verified 02/17/25 17:43 violent sertraline (From Zoloft) AdvReac Irritable Verified 02/17/25 17:43 General Stated Complaint: Recheck MARCIE: 3 Exam Narrative Exam Narrative: General Appearance: Alert and oriented. Vital signs: Within normal limits. HEENT: Within normal limits. Respiratory: Within normal limits. Gastrointestinal: Focal peritonitis in RLQ, no diffuse peritonitis. Back, Musculoskeletal: No CVA tenderness. Extremities: Distal pulses intact bilaterally. Skin: Warm and dry, no rash. Neurological: Normal. Course Vital Signs Vital signs: Vital Signs Temperature 36.6 C 02/17/25 17:38 Pulse 94 H 02/17/25 17:38 Respiratory Rate 16 02/17/25 17:38 Blood Pressure 133/81 02/17/25 17:38 Pulse Oximetry 95 02/17/25 17:38 Temperature 36.2 C L 02/18/25 15:51 Temperature Source Temporal Artery Scan 02/18/25 15:51 Pulse 64 02/18/25 15:51 Respiratory Rate 15 02/18/25 15:51 Respiratory Effort Normal 02/17/25 21:00 Respiratory Depth Normal 02/17/25 21:00 Respiratory Pattern Normal 02/17/25 21:00 Blood Pressure 136/79 02/18/25 15:51 Blood Pressure Mean 98 02/18/25 15:51 Blood Pressure Position Sitting 02/17/25 17:38 Pulse Oximetry 98 02/18/25 15:51 Oxygen Delivery Method Room Air 02/18/25 15:51 Oxygen Flow Rate 0 02/18/25 15:51 Pain Level 6 02/18/25 08:55 Comment RN notified 02/18/25 07:42 Lab/Test Results Lab/Test Results: 02/17/25 19:28 Blood Blood Culture - Pending 02/17/25 18:10 Blood Blood Culture - Pending Laboratory Tests Range/Units 02/17/25 18:09 WBC (4.4-10.8) 10^3/uL 9.43 RBC (4.36-5.78) 10^6/uL 4.70 Hgb (13.5-17.5) g/dL 13.2 L Hct (40.0-50.0) % 39.1 L MCV (80-95) fL 83 MCH (27.0-33.0) pg 28.1 MCHC (32.0-36.0) % 33.8 RDW (11.8-14.1) % 13.1 Plt Count (130-400) 10^3/uL 250 MPV (8.0-11.0) fL 9.9 Immature Gran % % 1.6 Neutrophils % % 62.4 Lymphocytes % % 23.2 Monocytes % % 10.3 Eosinophils % % 2.2 Basophils % % 0.3 Nucleated RBC % (0.0-0.3) % 0.0 Absolute Neutrophils (1.2-6.7) 10^3/uL 5.88 Absolute Lymphocytes (1.2-3.4) 10^3/uL 2.19 Absolute Monocytes (0.1-0.8) 10^3/uL 0.97 H Absolute Eosinophils (0.0-0.7) 10^3/uL 0.21 Absolute Basophils (0.0-0.2) 10^3/uL 0.03 VBG Lactate (<or=2.0) mmol/L 1.6 Sodium (136-145) mmol/L 143 Potassium (3.5-5.1) mmol/L 4.1 Chloride (98-107) mmol/L 105 Carbon Dioxide (21.0-32.0) mmol/L 30.3 Anion Gap (3-11) mmol/L 7.7 BUN (7-18) mg/dL 14 Creatinine (0.70-1.30) mg/dL 1.1 Est GFR (CKD-EPI 2020) (mL/min/1.73m2) 76.37 Glucose (74-106) mg/dL 125 H Calcium (8.5-10.1) mg/dL 8.8 Total Bilirubin (0.2-1.0) mg/dL 2.0 H AST (15-37) U/L 21 ALT (16-63) U/L 26 Alkaline Phosphatase (46-116) U/L 91 Total Protein (6.4-8.2) g/dL 7.2 Albumin (3.4-5.0) g/dL 4.0 Lipase (<78) U/L 62 Medical Decision Making No leukocytosis. Lactate WNL. CT abdomen/pelvis with contrast shows abscess. Per radiology interpretation of my review Initial Assessment: 59-year-old male with history of schizophrenia, presents 2 weeks status post appendectomy with worsening right lower quadrant pain, diaphoresis, and intermittent nausea. Denies vomiting. Pain worse with ambulating and movement. Initially thought it was secondary to constipation, took laxatives, had good bowel movement, but pain persisted. Alert and oriented, focal peritonitis in RLQ. No CVA tenderness, no diffuse peritonitis. Distal pulses intact bilaterally. ED Course: - No leukocytosis. - Lactate within normal limits. - Blood cultures pending. - CT abdomen/pelvis with contrast shows abscess. - Discussed with Dr. Garcia, recommended antibiotics and likely IR drainage at tertiary care facility. - Prefers hospital stay for IV antibiotics. - Initiated fluids. - Started on Cipro and Flagyl due to penicillin allergy. Final Assessment: Post-appendectomy complications with worsening RLQ pain, diaphoresis, and intermittent nausea. CT abdomen/pelvis shows abscess. Antibiotics initiated, likely IR drainage needed. Patient prefers hospital stay for IV antibiotics. Clinical Impression: - Post-appendectomy complications - Abscess Disposition: - Admission: Patient agreeable to admission for IV antibiotics. MDM Components Evaluation: - Number of Differential Diagnoses or Management Options: Post-appendectomy complications, abscess. - Amount and Complexity of Data Reviewed: Blood cultures, CT abdomen/pelvis with contrast. - Risk of Complication and Morbidity or Mortality: High risk due to abscess and need for potential IR drainage. Quality:SDOH Health Related Social Needs: Health related social needs details pt with DX of depression see note- not new dx PFSH All Active Problems (Updated 02/18/25 @ 07:37 by Didier Nguyen MD) Peritonitis (Acute) 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 (Acute) Glenoid chondromalacia of left shoulder (Acute) Bursitis of left shoulder (Acute) SLAP lesion of left shoulder (Acute) Arthritis of left acromioclavicular joint (Acute) Left rotator cuff tear (Acute) Preventative health care (Acute) Shoulder pain, left (Acute) Moderate persistent asthma (Acute) Essential hypertension (Acute) Severe recurrent major depression with psychotic features (Acute) Schizophrenia (Chronic) Medical History (Updated 02/18/25 @ 07:37 by Didier Nguyen MD) Acute appendicitis Hypothyroidism Family History Brother Alcohol use disorder Social History Smoking/Tobacco Use Status: Former Tobacco Use Quit Date: 09/14/98 Second Hand Exposure: Yes Smoking risk assessment performed?: Yes Alcohol Intake: former Drug use: Daily Substance use type: marijuana Adopted: No Caregiver/Support person: No Household members: significant other Housing: house Number of Children: 1 number of grandchildren: 0 Communication Needs: Corrective Lenses Education Level: middle school Do you need help understanding health information?: Always current occupation: disabled/retired Pets and animals: Yes (1) Pets and animals: dog(s) Sexually active: No Do you think of yourself as: straight/heterosexual Current gender identity: male How often do you talk on the phone with friends or family?: never How often do you get together with friends or relatives?: never Do you belong to any clubs or organized social groups?: no Panel score (0-1 are the most socially isolated patients): 0 What type of physical activity do you participate in: additional Details: Yard work Duration: > 90 minutes/day Glenna/Bahai: None Special glenna needs: No Seatbelt use: always Drive intox or ride w/intox 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
--- NOTE | 2025-02-18 17:48 | PDOC.CMIN ---
Date of service: 02/18/25 Time of Service: 15:00 Care Management Initial Assmt Initial Assessment Reason for Hospitalization: abdominal pain s/p appendectomy on 02/07 Functional Status/Living Situation Patient Presentation: Zane presented to the ED yesterday with increasing c/o pain, s/p appendectomy on 02/07. He had been seen in the surgical clinic on 02/13 for the same c/o. CBC at that time was benign, as was his physical exam. In ER, abdominal CT could not rule out abcess, and Zane was admitted for symptom conrol. Interventional radiology will be consulted on Thursday to see if they should drain the area. Zane was very pleasant when CM met with him today. He is feeling somewhat better and has been able to tolerate foods. Zane is independent at baseline, and denies any community needs. He has 3 squares, and is connected with [employer]. Town of Residence: [place] Resides with: Spouse (Erlinda life partner) Significant Other/Family: Local (son in [place], daughter in [place]) Natural Supports: family Employment Status: Disabled Instrumental Activities of Daily Living (ADLs): Independent Activities/Hobbies/SocialSupport: loves to be outside, all day every day. Enjoys his flower garden. Medications Medication Management: No Issues/Barriers identified Advance Directives Advance Directives: Do you have an Advance Directive: Y 02/25/24 14:07 AD On File at [facility]: N 08/19/23 21:33 Date Asked 02/13/25 02/13/25 14:58 AD Date Reviewed COLST On File at [facility] COLST Date Scanned Code Status Resuscitation Status Full Code Insurance Coverage/Financial Issues Insurance: Medicaid of [place]? Care Team Visit Care Team Role Provider Type Elisa Parikh APRN Primary Care Provider NURSE PRACTITIONER ANA Garrido Emergency Provider [facility] [employer] [employer] Didier Nguyen MD Admit Provider [facility] STAFF PHYSICIAN Attending Provider Discharge Potential Discharge Needs: PCP F/U Appt and Surgical F/U Appt Anticipated Barriers to Discharge: None Identified Patient/Family Education Needs: Review discharge instructions, discuss Ask Me Three Transportation: Private vehicle Plan: Anticipate that Zane will discharge home once deemed medically stable, with no new services. He will f/u with his PCP and the surgeon, and continue per his plan of care. CM will continue to follow and to update the plan as needed. Social Determinants of Health Screening Social Determinants of health last assessed in clinic: 02/18/25 Will the Patient Participate in the Screening?: Yes Do you worry about having a steady place to live?: yes What is your living situation today?: I have housing today, but am worried about losing it Problems where you live: no known problems In the past 12 months, have you had to go without electric, gas, oil or water in your home?: no 1. Within the past 12 months, we worried whether our food would run out before we got money to buy more.: Sometimes true 2. Within the past 12 months, the food we bought just didn't last and we didn't have money to get more.: Sometimes true Has lack of transportation kept you from medical appointments or from doing things needed for daily living?: no Has anyone in your life made you feel unsafe or unsupported?: no How hard is it for you to pay for the very basics like food, housing, medical care, and heating? Would you say it is:: Not hard at all Do you want help finding or keeping work or a job?: I do not need or want help If for any reason you need help with day-to-day activities such as bathing, preparing meals, shopping, managing finances, etc., do you get the help you need?: I don?t need any help How often do you feel lonely or isolated from those around you?: Never Do you speak a language other than Lebanese at home?: Yes Health Related Social Needs Health related social needs: housing instability, housed, with risk of homelessness (Z59.811), food insecurity (Z59.41) and education (Z55.6) PFSH All Active Problems (Updated 02/18/25 @ 07:37 by Didier Nguyen MD) Peritonitis (Acute) 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 (Acute) Glenoid chondromalacia of left shoulder (Acute) Bursitis of left shoulder (Acute) SLAP lesion of left shoulder (Acute) Arthritis of left acromioclavicular joint (Acute) Left rotator cuff tear (Acute) Preventative health care (Acute) Shoulder pain, left (Acute) Moderate persistent asthma (Acute) Essential hypertension (Acute) Severe recurrent major depression with psychotic features (Acute) Schizophrenia (Chronic) Medical History (Updated 06/07/25 @ 07:37 by Didier Nguyen MD) Acute appendicitis Hypothyroidism Family History Brother Alcohol use disorder Social History Smoking/Tobacco Use Status: Former Tobacco Use Quit Date: 09/14/98 Second Hand Exposure: Yes Smoking risk assessment performed?: Yes Alcohol Intake: former Drug use: Daily Substance use type: marijuana Adopted: No Caregiver/Support person: No Household members: significant other Housing: house Number of Children: 1 number of grandchildren: 0 Communication Needs: Corrective Lenses Education Level: middle school Do you need help understanding health information?: Always current occupation: disabled/retired Pets and animals: Yes (1) Pets and animals: dog(s) Sexually active: No Do you think of yourself as: straight/heterosexual Current gender identity: male How often do you talk on the phone with friends or family?: never How often do you get together with friends or relatives?: never Do you belong to any clubs or organized social groups?: no Panel score (0-1 are the most socially isolated patients): 0 What type of physical activity do you participate in: additional Details: Yard work Duration: > 90 minutes/day Glenna/Nondenominational: None Special glenna needs: No Seatbelt use: always Drive intox or ride 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
[2025-02-18 19:21] VITALS: BP 183/86; PULSE 78; RESP 18; TEMP 36; O2SAT 96
[2025-02-18 19:40] VITALS: BP 139/76
[2025-02-19] MEDS: Enoxaparin 40 MG/0.4 ML SYR SC (00:35)
[2025-02-19] MEDS: Normal Saline Flush 10 ML SYR IVP (00:35)
[2025-02-19 06:38] LABS: HCT 38.6 % (40.0-50.0); MCH 27.8 pg (27.0-33.0); MCHC 33.7 % (32.0-36.0); MCV 83 fL (80-95); MPV 10.4 fL (8.0-11.0); Platelet Count 229 10^3/uL (130-400); RBC 4.68 10^6/uL (4.36-5.78); RDW 13.1 % (11.8-14.1); RDW-SD 38.6 fL; WBC 8.36 10^3/uL (4.4-10.8)
[2025-02-19 06:50] LABS: C-Reactive Protein 1.23 mg/dL (<or=0.5)
[2025-02-19 07:30] VITALS: BP 138/90; PULSE 70; RESP 16; TEMP 36.8; O2SAT 97
[2025-02-19] MEDS: Budesonide/Formoterol 160/4.5 6 GM 60 PUFF INH IH (07:45)
--- NOTE | 2025-02-19 08:28 | W.PM.PROGNOT ---
Date of Service Date of service: 02/19/25 Time of Service: 08:28 Assessment and Plan Assessment and plan (1) Peritonitis: Status: Acute Assessment and plan: Zane's white blood cell count has been within normal limits since the first outpatient test last week. He has been afebrile since has been here in the hospital. He has had no episodes of tachycardia. CRP is quite low, and decreasing. With all of this information, I am really quite skeptical that this represents peritonitis from an intra-abdominal or surgical site infection. I think the more likely scenario is that he had a small amount of bleeding resulting in a peritoneal hematoma which is causing his peritonitis. There is no active signs of blush on the CT scan, nor any clinical reason to believe that there is any active ongoing bleeding. His hemoglobin has been stable. I think this will resolve with a little more time. Certainly his improvement over the past 24 to 48 hours would support that idea as well. I will discharge him home today, and he can follow-up in the office this week. Subjective Subjective Interval history since last seen: Zane says he is finally feeling better today. He was able to sleep overnight, and has been tolerating a diet. He says his pain is improving. Unfortunately, he did develop a rash yesterday, that seems most likely secondary to the antibiotics he was on. I stopped the antibiotics yesterday morning, and the rash seems to be improving this morning. Exam GI Other: His abdomen remains soft and nondistended. Bowel sounds are little more active today. Incisions are all clean. There is no erythema or any signs of infection. Tenderness on the right abdomen seems to be improving. Skin Other: Rash on the thighs as well within the borders that were marked yesterday, and seems to be going away completely. Objective Last Vital Signs Temp 98.2 F 02/19/25 07:30 Pulse 70 02/19/25 07:30 Resp 16 02/19/25 07:30 BP 138/90 02/19/25 07:30 Pulse Ox 97 02/19/25 07:30 Laboratory Results - last 24 hr 02/19/25 05:34 WBC 8.36 RBC 4.68 Hgb 13.0 L Hct 38.6 L MCV 83 MCH 27.8 MCHC 33.7 RDW 13.1 Plt Count 229 MPV 10.4 C-Reactive Protein 1.23 H Time Spent with Patient Time Spent with Patient: 25-34 minutes Time was spent: preparing to see the patient(eg.review tests), indepentently interpreting results, counseling the patient and care coordination
--- NOTE | 2025-02-19 08:30 | W.PM.DS.N ---
Date of service: 02/19/25 Time of Service: 08:31 DS: Diagnosis Discharge Diagnosis (1) Peritonitis: Status: Acute Asessment and Plan: Secondary to abdominal hematoma; discharge home with outpatient follow-up Discharge Plan Disposition Patient Disposition: Home Condition: Improving Discharge Details Reason For Visit: deep surgical space infection Admit Date/Time: 02/17/25 19:30 Admit Provider: Didier Nguyen Attending Provider: Didier Nguyen Primary Care Provider: Elisa Parikh [facility] Course Hospital Course: Zane is 59 years old. He underwent emergency appendectomy for acute appendicitis on February 07. He initially did well, but developed worsening abdominal pain a few days after discharge. He was seen in the office, and the history and exam were reassuring. Unfortunately, his pain continued, so he came back to the emergency department. He underwent a CT scan which was around postoperative day #10. That showed evidence of a fluid collection along the right paracolic gutter. I was concerned that this may represent an abscess. So he was admitted, and I started him on broad-spectrum antibiotics. White blood cell count was still within normal limits, and his CRP was only mildly elevated, arguing against bacterial infection. Unfortunately, he did develop a rash that seem to be secondary to the antibiotics. They were discontinued. Symptoms improved over the next 24 hours. Aside from abdominal discomfort, he had no other signs or symptoms of sepsis. Symptoms were improving by Thursday, he was discharged home with outpatient follow-up with a presumed diagnosis of a postoperative hematoma as opposed to an abscess Home Meds and New Rx's Prescriptions: Continued epinephrine [EpiPen 2-Tucker] 0.3 mg/0.3 mL auto-injector 0.3 mg IM ONCE PRN (Reason: anaphylaxis) Qty: 2 1RF Rx Instructions: as a single dose; may repeat once celecoxib [Celebrex] 100 mg capsule 100 mg PO BID PRN (Reason: pain) Qty: 60 1RF Rx Instructions: take with food polyethylene glycol 3350 [Miralax] 17 gram/dose powder 17 g PO BID Qty: 119 0RF Rx Instructions: Mix 17 g (1 capful in 8 ounces of water and drink as soon as you get home. Repeat after dinner tonight. (DME) ProChamber Spacer See Rx Instructions .Route Rx Instructions: As directed divalproex [Depakote ER] 250 mg tablet extended release 24 hr 1,500 mg PO QHS 30 Days Qty: 180 3RF budesonide-formoterol [Symbicort] 160-4.5 mcg/actuation HFA aerosol inhaler 1 puff inhalation BID Qty: 10.2 3RF albuterol sulfate 90 mcg/actuation HFA aerosol inhaler 2 puff inhalation Q6H PRN (Reason: shortness of breath or wheezing) Qty: 8.5 2RF Discontinued tramadol 50 mg tablet 50 mg PO Q8H PRNQty: 9 0RF Rx Instructions: Take 1 tablet by mouth up to every 8 hours if needed for more severe pain Discharge Instructions Additional Instructions: Zane, I am sorry that you had to spend a few nights in the hospital, but I was glad to keep an eye on you, and overall I am quite reassured. As a brief summary, you underwent appendectomy for acute appendicitis on the . As of sure you recall, you developed some increasing abdominal pain after you got home. That pain seem to get worse after our outpatient visit, and when he came back to the emergency department, we did a CT scan that demonstrated some fluid on the right side of your abdomen, and the area where we removed your appendix. At first, I was worried that that may represent an abscess, although some of the features of it did not really appear that way on the CT scan. More importantly, however, your white blood cell count was still normal, you had no fevers, nor did you have any other physical signs that would support the diagnosis of an infection. I did start you on some antibiotics initially, but because you developed a skin rash, we stopped that. I remain reassured, however, by your improving symptoms, and the fact that this really does not appear to be an infection. In that regard, I think the thing that makes the most sense is that this is a hematoma, or collection of blood (similar to a large bruise) inside of your abdomen. As we discussed while you were here in the hospital, it was probably secondary to the operation itself, and some disruption of scar tissue in the early phases of healing. This should be reabsorbed over time, and your discomfort should improve a little more and more each day over the next 2 to 3 weeks. I will have the office reach out to you on Thursday to schedule a follow-up visit with us sometime in the next week or 2. If you need anything else, please do not hesitate to call. Activity:: No heavy lifting Equipment/Supplies:: No Equipment Needed Diet:: As Tolerated DS: Summary Time Spent with Patient providing and/or coordinating discharge services: Greater than 30 minutes Status at Discharge Functional status at discharge: independent ambulation Overall status at discharge: patient is progressing back to baseline Mental Status: mental status grossly normal Speech and Movement: speech and movement normal Mood: congruent mood Affect: normal affect Quality:SDOH Health Related Social Needs: Health related social needs housing instability, housed, with risk of homelessness (Z59.811), food insecurity (Z59.41), education (Z55.6) Health related social needs details pt with DX of depression see note- not new dx Exam GI Other: Abdomen is soft, nondistended, and only minimal tenderness on the right side. Incisions are all clean, and I do not see any signs of infection. Psych Mental Status: mental status grossly normal Speech and Movement: speech and movement normal Mood: congruent mood Affect: normal affect DS: Data Vitals/I&O Vitals and I&O: Vital Signs Temperature 98.2 F 02/19/25 07:30 Temperature Source Temporal Artery Scan 02/19/25 07:30 Pulse 70 02/19/25 07:30 Respiratory Rate 16 02/19/25 07:30 Respiratory Effort Normal 02/17/25 21:00 Respiratory Depth Normal 02/17/25 21:00 Respiratory Pattern Normal 02/17/25 21:00 Blood Pressure 138/90 02/19/25 07:30 Blood Pressure Mean 106 02/19/25 07:30 Blood Pressure Position Sitting 02/17/25 17:38 Pulse Oximetry 97 02/19/25 07:30 Oxygen Delivery Method Room Air 02/19/25 07:30 Oxygen Flow Rate 0 02/19/25 07:30 Pain Level 0 02/19/25 07:30 Comment RN notified 02/18/25 07:42 Intake & Output 02/18/25 02/18/25 02/19/25 11:59 23:59 11:59 Intake Total 1560 / 1810 250 / 1810 480 / 480 Output Total 800 / 1310 510 / 1310 250 / 250 Balance 760 / 500 -260 / 500 230 / 230 Intake: IV 300 / 310 10 / 310 Oral 1260 / 1500 240 / 1500 480 / 480 Output: Urine 800 / 1310 510 / 1310 250 / 250 Other: Urine Color Yellow Pale Light Emily Urine Appearance Clear Clear Clear Urine Odor Normal None Normal Stool Size Moderate Stool Characteristics Soft Formed Data Completed and Pending Labs on day of discharge: Labs from last 24 hours 02/19/25 05:34 WBC 8.36 RBC 4.68 Hgb 13.0 L Hct 38.6 L MCV 83 MCH 27.8 MCHC 33.7 RDW 13.1 Plt Count 229 MPV 10.4 C-Reactive Protein 1.23 H Preliminary micro results at discharge 02/17/25 19:28 Blood Blood Culture - Preliminary NO GROWTH 24 HOURS 02/17/25 18:10 Blood Blood Culture - Preliminary NO GROWTH 24 HOURS PFSH All Active Problems (Updated 02/18/25 @ 07:37 by Didier Nguyen MD) Peritonitis (Acute) 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 (Acute) Glenoid chondromalacia of left shoulder (Acute) Bursitis of left shoulder (Acute) SLAP lesion of left shoulder (Acute) Arthritis of left acromioclavicular joint (Acute) Left rotator cuff tear (Acute) Preventative health care (Acute) Shoulder pain, left (Acute) Moderate persistent asthma (Acute) Essential hypertension (Acute) Severe recurrent major depression with psychotic features (Acute) Schizophrenia (Chronic) Medical History (Updated 02/18/25 @ 07:37 by Didier Nguyen MD) Acute appendicitis Hypothyroidism Family History Brother Alcohol use disorder Social History Smoking/Tobacco Use Status: Former Tobacco Use Quit Date: 09/14/98 Second Hand Exposure: Yes Smoking risk assessment performed?: Yes Alcohol Intake: former Drug use: Daily Substance use type: marijuana Adopted: No Caregiver/Support person: No Household members: significant other Housing: house Number of Children: 1 number of grandchildren: 0 Communication Needs: Corrective Lenses Education Level: middle school Do you need help understanding health information?: Always current occupation: disabled/retired Pets and animals: Yes (1) Pets and animals: dog(s) Sexually active: No Do you think of yourself as: straight/heterosexual Current gender identity: male How often do you talk on the phone with friends or family?: never How often do you get together with friends or relatives?: never Do you belong to any clubs or organized social groups?: no Panel score (0-1 are the most socially isolated patients): 0 What type of physical activity do you participate in: additional Details: Yard work Duration: > 90 minutes/day Glenna/Jehovah'S Witness: None Special glenna needs: No Seatbelt use: always Drive intox or ride w/intox 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
--- NOTE | 2025-02-19 08:46 | CMDISCH_ITS ---
Date of service: 02/19/25 Time of Service: 08:46 LACE Index Scoring Tool Questions: Length of Stay (in days): 2 Was the patient admitted via the E.D.?: Yes E.D. Visits: 2 Answers: Total Score: 7 Risk of Readmission: Low Risk Care Management Discharge Plan Reason for Hospitalization: peritonitis Discharge Plan: Zane will be discharged later this morning with now new services. He will f/u with the surgeon on 02/23 and with his PCP and continue per his plan of care. Zane will transport home with Erlinda, his . Patient/Family Education Needs: Review of discharge instructions, activity, limitations and discuss ask me 3. SDOH Health Related Social Needs: Health related social needs housing instability, house d, with risk of homelessness (Z59.811), food insecurity (Z59.41), education (Z55.6) Health related social needs details pt with DX of depr ession see note- not new dx
== END 2025-02-19 10:04 | disposition home or self-care (01) ==
LOC: ER 20:15 → MS 20:35
PROVIDERS: Admitting Provider Surgery; Emergency Provider Physician Assistant; PCP Nurse Practitioner Family; Responsible Provider Surgery; Visit Provider Surgery
DX: K91.870 Postprocedural hematoma of a digestive system organ or structure following a digestive system procedure (principal); K65.8 Other peritonitis; F20.9 Schizophrenia, unspecified; Z87.891 Personal history of nicotine dependence; Z79.899 Other long term (current) drug therapy; K59.00 Constipation, unspecified; I10 Essential (primary) hypertension; J45.40 Moderate persistent asthma, uncomplicated; M19.012 Primary osteoarthritis, left shoulder; M94.212 Chondromalacia, left shoulder; E03.9 Hypothyroidism, unspecified; F12.90 Cannabis use, unspecified, uncomplicated; Y83.8 Other surgical procedures as the cause of abnormal reaction of the patient, or of later complication, without mention of misadventure at the time of the procedure
CPT/HCPCS: 36415; 80053; 83690; 85027; 87040; 94640; 96361; 96365; 96366; 96367; 96372; 96375; 99285; J1650; 74177; 83605; 85025; 86140; 94664; G0378; J0131; J0744; J1836; J2270; J3490

== ENCOUNTER 2025-03-03 08:28 | Outpatient (CLI) | payer MEDICAID, SELFPAY ==
--- NOTE | 2025-03-03 08:15 | RT.EKG_ITS ---
APPROVED REPORT Exam: Resting ECG Reason for Exam: syncope Patient Location: O HR:62 bpm ECG Measurements Heart Rate 62 AXIS CA 194 P 11 QRSd 114 QRS 39 QT 384 T -3 QTc 390 Conclusion Sinus rhythm...normal P axis, V-rate 50- 99 Borderline T abnormalities, inferior leads...T flat/neg, II III aVF
== END 2025-03-03 08:29 | disposition home or self-care (01) ==
LOC: DI.KIM 08:29
PROVIDERS: PCP Nurse Practitioner Family; Visit Provider Nurse Practitioner Family
DX: R55 Syncope and collapse (principal)
CPT/HCPCS: 93010

== ENCOUNTER 2025-03-10 00:50 | Outpatient (CLI) | payer MEDICAID, SELFPAY ==
[2025-03-10 09:19] LABS: HGB 14.2 g/dL (13.5-17.5)
[2025-03-10 10:10] LABS: VALPROIC ACID < 3 ug/mL
[2025-03-10 10:16] LABS: ALT 30 U/L (16-63); AST 16 U/L (15-37); Albumin 4.3 g/dL (3.4-5.0); Alkaline Phosphatase 100 U/L (46-116); Anion Gap 11.5 mmol/L (3-11); BUN 18 mg/dL (7-18); Bilirubin, Total 1.4 mg/dL (0.2-1.0); CO2 26.5 mmol/L (21.0-32.0); Calcium 9.1 mg/dL (8.5-10.1); Chloride 105 mmol/L (98-107); Estimated GFR 85.63 (mL/min/1.73m2); Glucose 111 mg/dL (74-106); Magnesium 1.9 mg/dL (1.8-2.4); Potassium 4.2 mmol/L (3.5-5.1); Sodium 143 mmol/L (136-145); TSH (W/Ref FT4) 3.03 uIU/mL (0.36-3.74); Total Protein 7.4 g/dL (6.4-8.2)
== END 2025-03-10 00:51 | disposition home or self-care (01) ==
LOC: LBO 00:51
PROVIDERS: PCP Nurse Practitioner Family; Visit Provider Nurse Practitioner Family
DX: R55 Syncope and collapse (principal)
CPT/HCPCS: 36415; 80053; 80164; 83735; 84443; 85014; 85018

== ENCOUNTER 2025-03-10 08:25 | Outpatient (RCR) | payer MEDICAID, SELFPAY | END 2025-03-13 23:59 | disposition home or self-care (01) | LOC: CARDOPNVT 08:25 | PROVIDERS: PCP Nurse Practitioner Family; Visit Provider Internal Medicine Cardiovascular Disease | DX: I49.1 Atrial premature depolarization (principal) | CPT/HCPCS: 93225; 93226 ==

== ENCOUNTER 2025-03-13 01:14 | Outpatient (CLI) | payer MEDICAID, SELFPAY ==
--- NOTE | 2025-03-13 08:00 | DI.CT_ITS ---
Exam(s) CT HEAD WO EXAM: CT HEAD WO CLINICAL HISTORY: syncope, collapse,r55. TECHNIQUE: Imaging Protocol: Axial computed tomography images with coronal and sagittal reformatted images were created and reviewed COMPARISON: No exams were available for comparison FINDINGS: Ventricles and Extra axial spaces: Normal in size and morphology for the patient's age. Hemorrhage: None. Cerebral parenchyma: No evidence of acute infarct or mass. Midline shift: None. Brainstem/Cerebellum: Normal. Bones: No skull or facial fractures. Visualized Paranasal sinuses:Clear. Mastoids: Clear. Soft Tissues: Unremarkable. ORBITS: Unremarkable. PITUITARY: Not enlarged. IMPRESSION: No acute intracranial process. RADIATION DOSE DELIVERED: 909.36mGy.cm Total DLP DATA REPOSITORY: All CT scans at this facility are submitted to the National Radiology Data Registry (NRDR) Dose Index Registry (DIR) with the [employer] (ACR). RADIATION OPTIMIZATION: All CT scans at this facility use at least one of these dose optimization techniques: automated exposure control; mA and/or kV adjustment per patient size (includes targeted exams where dose is matched to clinical indication); or iterative reconstruction.
== END 2025-03-13 01:34 ==
LOC: DI 01:14
PROVIDERS: PCP Nurse Practitioner Family; Visit Provider Nurse Practitioner Family
DX: R55 Syncope and collapse (principal)
CPT/HCPCS: 70450

== ENCOUNTER 2025-03-28 07:56 | Outpatient (CLI) | payer MEDICAID, SELFPAY ==
--- NOTE | 2025-03-28 07:45 | RT.EKG_ITS ---
APPROVED REPORT Exam: Resting ECG Reason for Exam: syncope Patient Location: O HR:69 bpm ECG Measurements Heart Rate 69 AXIS HI 168 P 20 QRSd 108 QRS 11 QT 386 T -4 QTc 414 Conclusion Sinus rhythm...normal P axis, V-rate 50- 99 Normal Electrocardiogram
== END 2025-03-28 07:57 | disposition home or self-care (01) ==
LOC: DI.CARD 07:56
PROVIDERS: PCP Nurse Practitioner Family; Visit Provider Internal Medicine Cardiovascular Disease
DX: R55 Syncope and collapse (principal)
CPT/HCPCS: 93010